=== PATIENT | female | born 1960 | race African-American/Black ===

== ENCOUNTER 2016-11-24 17:56 | Emergency (ER) | payer BC, OTHER ==
[~2016-11-24] VITALS: Ht 165.1 cm; Wt 110.0 kg
[2016-11-24 18:07] VITALS: BP 164/86; PULSE 86; RESP 24; TEMP 98.4; O2SAT 96
[2016-11-24] MEDS ORDERED: SYMB160A INH (18:07)
--- NOTE | 2016-11-24 18:33 | PD ---
HPI Chief Complaint: Respiratory Symptoms Time Seen by Provider: 18:25 Travel History International Travel<30 days: No Contact w/Intl Traveler<30days: No Traveled to known affect area: No History of Present Illness HPI 56yo F with PMH of asthma/COPD was sent from the PMD's office because her pulse oximetry was low there. Pt has been sob and wheezing for about 3 days. Feels like her asthma. +Cough. Denies any fever, chest pain, n/v, abdominal pain, focal weakness or numbness. Pt was given 2 nebulizer treatments and a steroid injection. She was actually feeling better but her pulse ox was low at 89% there for sent her here. Pt's pulse oximetry on room air is 96% here. Pt is a chronic smoker. PFSH Past Medical History Asthma: Yes Influenza Vaccination: No ?: Not Past Surgical History Cholecystectomy: Yes Social History Alcohol Use: No Tobacco Use: Yes Substance Use: No Allergies-Medications (Allergen,Severity, Reaction): Coded Allergies: No Known Allergies (Unverified , 11/24/16) Reported Meds & Prescriptions Reported Meds & Active Scripts Active Reported Symbicort Inh (Budesonide/Formoterol Fumarate) 160-4.5 Mcg/Act Aero 2 Puff INH Q12HR Review of Systems Except as stated in HPI: all other systems reviewed are Neg Physical Exam Narrative GENERAL: 56yo F in mild distress. SKIN: Focused skin assessment warm/dry. HEAD: Atraumatic. Normocephalic. NECK: Trachea midline. No JVD. CARDIOVASCULAR: Regular rate and rhythm. No murmur appreciated. RESPIRATORY: No accessory muscle use. Expiratory wheezing bilaterally. O2 sat 96% on RA. GASTROINTESTINAL: Abdomen soft, non-tender, nondistended. No rebound tenderness or guarding. MUSCULOSKELETAL: No obvious deformities. No clubbing. No cyanosis. No edema. NEUROLOGICAL: Awake and alert. No obvious cranial nerve deficits. Motor grossly within normal limits. Normal speech. PSYCHIATRIC: Appropriate mood and affect; insight and judgment normal. Data Data Last Documented VS Vital Signs Date Time Temp Pulse Resp B/P (MAP) Pulse Ox O2 Delivery O2 Flow Rate FiO2 11/24/16 21:01 94 20 175/76 (109) 94 Room Air 11/24/16 18:07 98.4 Orders Orders Chest, Single Ap (11/24/16 18:28) Albuterol-Ipratropium Neb (Duoneb Neb) (11/24/16 18:30) Electrocardiogram (11/24/16 ) Albuterol-Ipratropium Neb (Duoneb Neb) (11/24/16 21:00) [facility] Medical Decision Making Medical Screen Exam Complete: Yes Emergency Medical Condition: Yes Interpretation(s) EKG: NSR 98bpm. Normal axis. No significant ST segment elevation. Differential Diagnosis Asthma exacerbation vs. pneumonia Narrative Course 56yo F with asthma/COPD was sent here from PMD's office because her saturation was low at 89. CXR negative. Pt has been saturating in the mid 90s and low 90s with ambulating. Pt is wheezing bilaterally and given duonebs. States this is her baseline and she had ran out of her medications for 2 weeks and just needed them. Pt has prescriptions from her PMD for symbicort, ventolin, methylprednisolone. Her friend just went to fill her prescriptions for her while she was in the ED. Denies any chest pain. Return precautions given. Diagnosis Primary Impression: COPD exacerbation Patient Instructions: General Instructions Departure Forms: Tests/Procedures Additional Instructions: Please follow up with your primary care physician and fill the prescriptions that you were given today. Return to the ED if symptoms worsen. Med/Other Pt SpecificInfo: No Change to Meds Disposition: 01 DISCHARGE HOME Condition: Stable Rebecca Valentine Nov 24, 2016 18:33
[2016-11-24] MEDS: RESP: ALBUTEROL 2.5 MG/IPRATROPIUM 0.5 MG NEB (SCH) INH (18:37)
--- NOTE | 2016-11-24 18:57 | RADRPT ---
EXAM DATE/TIME: 11/24/2016 18:48 [facility] COMPARISON: No previous studies available for comparison. INDICATIONS : Short of breath for three days. MEDICAL HISTORY : None. SURGICAL HISTORY : None. ENCOUNTER: Initial ACUITY: 3 days PAIN SCORE: 0/10 LOCATION: Bilateral chest FINDINGS: A single view of the chest demonstrates the lungs to be symmetrically aerated without evidence of mas s, infiltrate or effusion. The cardiomediastinal contours are unremarkable. Osseous structures are intact. CONCLUSION: No evidence of acute cardiopulmonary disease. Jony Valdez MD on November 24, 2016 at 18:56 Board Certified Radiologist. This report was verified electronically.
[2016-11-24 19:08] VITALS: BP 196/86; PULSE 96; RESP 18; O2SAT 96
[2016-11-24] MEDS ORDERED: RESP: ALBUTEROL 2.5 MG/IPRATROPIUM 0.5 MG NEB (SCH) INH ONE (21:00)
[2016-11-24 21:01] VITALS: BP 175/76; PULSE 94; RESP 20; O2SAT 94
[2016-11-24 21:13] VITALS: BP 176/78
--- NOTE | 2016-11-25 11:31 | EKG ---
Date Performed: 11/24/2016 Time Performed: 20:31:27 PTAGE: 56 years EKG: Sinus rhythm NONSPECIFIC T-WAVE ABNORMALITY BORDERLINE ECG NO PREVIOUS TRACING DOCTOR: Arian Sahu Interpretating Date/Time 11/25/2016 11:29:41
== END 2016-11-24 21:27 | disposition home or self-care (01) ==
LOC: PHED 17:56
DX: J44.1 Chronic obstructive pulmonary disease with (acute) exacerbation (principal); Z72.0 Tobacco use
CPT/HCPCS: 71010; 93005; 94640; 94664

== ENCOUNTER 2017-05-03 12:10 | Emergency (ER) | payer BC ==
[~2017-05-03] VITALS: Ht 162.6 cm; Wt 119.1 kg
[~2017-05-03 12:10] MED LIST: SYMB160A INH
[2017-05-03 12:25] VITALS: BP 130/75; PULSE 88; RESP 16; TEMP 98.7; O2SAT 96
[2017-05-03] MEDS ORDERED: AMLO10TA2 PO (12:28)
[2017-05-03] MEDS ORDERED: TRAM50TA PO (12:28)
[2017-05-03] MEDS ORDERED: METH500T3 PO (12:28)
[2017-05-03] MEDS ORDERED: RESP: ALBUTEROL 2.5 MG/IPRATROPIUM 0.5 MG NEB (SCH) INH ONE ×2 (12:30→13:00)
[2017-05-03] MEDS ORDERED: ORPHENADRINE INJ 60 MG/2 ML AMP IM ONE (12:30)
--- NOTE | 2017-05-03 12:40 | PD ---
HPI Chief Complaint: Pain: Acute or Chronic Time Seen by Provider: 12:14 Travel History International Travel<30 days: No Contact w/Intl Traveler<30days: No Traveled to known affect area: No History of Present Illness HPI Patient comes to the emergency department complaining of left flank pain that began yesterday. Patient denies any trauma, fevers, loss of bowel or bladder, numbness tingling anywhere, weakness, or history of IV drug use. Patient reports he saw primary care doctor was started on Mobic and tramadol with no improvement of symptoms. Pain is worse with certain movement. Patient reports increased urinary frequency last night. Denies any dysuria, chest pain, shortness of breath, nausea, vomiting, or abdominal pain. Patient reports he has a chronic cough secondary to her asthma and uses inhalers for this. PFSH Past Medical History Asthma: Yes Cardiovascular Problems: Yes (HTN) Diabetes: Yes (HX of but not anymore) Patient Takes Glucophage: No Hypertension: Yes Respiratory: Yes (asthma) Tetanus Vaccination: < 5 Years Influenza Vaccination: No Past Surgical History Cholecystectomy: Yes Social History Alcohol Use: No Tobacco Use: No Substance Use: No Allergies-Medications (Allergen,Severity, Reaction): Coded Allergies: No Known Allergies (Unverified Adverse Reaction, Unknown, 05/03/17) Reported Meds & Prescriptions Reported Meds & Active Scripts Active Naprosyn (Naproxen) 500 Mg Tab 500 Mg PO Q12HR PRN Reported Tramadol (Tramadol HCl) 50 Mg Tab 50 Mg PO Q8H PRN Methocarbamol 500 Mg Tab 1,000 Mg PO QID Amlodipine (Amlodipine Besylate) 10 Mg Tab 10 Mg PO DAILY Symbicort Inh (Budesonide/Formoterol Fumarate) 160-4.5 Mcg/Act Aero 2 Puff INH Q12HR Review of Systems Except as stated in HPI: all other systems reviewed are Neg Physical Exam Narrative GENERAL: Well-developed, overly nourished, in no acute distress, and non-ill appearing. SKIN: Focused skin assessment warm and dry. HEAD: Atraumatic. Normocephalic. EYES: Pupils equal and round. EOMI. No scleral icterus. No injection or drainage. ENT: No nasal bleeding or discharge. Mucous membranes pink and moist. NECK: Trachea midline. Supple. No nuclear rigidity. CARDIOVASCULAR: Regular rate and rhythm. No murmur appreciated. RESPIRATORY: No accessory muscle use. No respiratory distress. Wheezing noted throughout. Breath sounds equal bilaterally. GASTROINTESTINAL: Abdomen soft, non-tender, nondistended, and no guarding. Hepatic and splenic margins not palpable. Normal bowel sounds x4. No pulsatile mass. MUSCULOSKELETAL: No obvious deformities. No clubbing. No cyanosis. No edema. Full range of motion. Patient reports pain over left CVA. NEUROLOGICAL: Awake and alert. No obvious cranial nerve deficits. Motor grossly within normal limits. Normal speech. PSYCHIATRIC: Appropriate mood and affect; insight and judgment normal. Data Data Last Documented VS Vital Signs Date Time Temp Pulse Resp B/P (MAP) Pulse Ox O2 Delivery O2 Flow Rate FiO2 05/03/17 15:12 05/03/17 14:26 79 16 97 05/03/17 12:25 98.7 Orders Orders Urinalysis - C+S If Indicated (05/03/17 12:21) Chest, Pa & Lat (05/03/17 ) Orphenadrine Inj (Norflex Inj) (05/03/17 12:30) Albuterol-Ipratropium Neb (Duoneb Neb) (05/03/17 12:30) Albuterol-Ipratropium Neb (Duoneb Neb) (05/03/17 13:00) Acetamin-Hydrocod 325-5 Mg (Kennedy 5-325 (05/03/17 14:00) Ct Abd/Pel W/O Iv Contrast (05/03/17 13:58) Iv Access Insert/Monitor (05/03/17 13:58) Ecg Monitoring (05/03/17 13:58) Oximetry (05/03/17 13:58) Sodium Chloride 0.9% Flush (Ns Flush) (05/03/17 14:00) Ed Discharge Order (05/03/17 15:13) Labs Laboratory Tests Test 05/03/17 13:30 Urine Collection Type CLEAN CATCH Urine Color YELLOW Urine Turbidity CLEAR Urine pH 5.5 Urine Specific [place] 1.023 Urine Protein NEG mg/dL Urine Glucose (UA) NEG mg/dL Urine Ketones TRACE mg/dL Urine Occult Blood TRACE Urine Nitrite NEG Urine Bilirubin NEG Urine Leukocyte Esterase NEG Urine RBC 0-3 /hpf Urine WBC 0-2 /hpf Urine Squamous Epithelial Cells 0-5 /hpf Microscopic Urinalysis Comment CULT NOT INDICATED Urine Collection Time 13:30 [facility] Medical Decision Making Medical Screen Exam Complete: Yes Emergency Medical Condition: Yes Interpretation(s) Last Impressions Abdomen/Pelvis CT 05/03/17 1358 Signed Impressions: Service Date/Time: Wednesday, May 03, 2017 14:14 - CONCLUSION: 1. Negative renal colic CT. Juan Luis Epperson MD Chest X-Ray 05/03/17 0000 Signed Impressions: Service Date/Time: Wednesday, May 03, 2017 12:46 - CONCLUSION: No acute cardiopulmonary disease. Juan Luis Epperson MD Differential Diagnosis Pneumonia, fracture, costochondritis, pyelonephritis, UTI, renal calculi, renal colic, muscular skeletal pain Narrative Course The patient presented complaining of back pain. There was no history of preceding trauma. Evaluation included labs, x-ray, and CT scan and no obvious fracture or acute disease was noted at this time. The patients evaluation was consistent with soft tissue injury and not consistent with bony injury. The patients neurological exam is normal with normal motor and sensory. There is no saddle paresthesias reported and no bowel or bladder incontinence or retention. Clinical suspicion, plan of care and management was discussed with the patient. The patient was instructed to follow up with their health care provider. The patient was also instructed to return if the pain worsened, changed, or developed weakness or bowel or bladder trouble. The patient agreed with plan. There was no evidence to support genitourinary etiology as well. There is also no evidence to suggest vascular pathology such as AAA dissection. No fevers or other evidence to suspect infectious processes, abscess etc. Patient with asymptomatic hematuria. No obvious evidence of infection or kidney stones. This finding was discussed with the patient and the patient was instructed to follow up with with primary care provider for recheck and possible referral to urology to possibly rule out etiologies such as cancer. Patient agreed with plan. Patient in no obvious distress upon re-evaluation. All pertinent laboratory/ Radiology result(s) discussed with patient. Patient was asked if they wanted to speak to my attending, which the patient did not wish to do at this time. Any questions/concerns in reference to patient diagnosis/condition discussed and clarified prior to patient's discharge. Reinforced sheer importance of close follow up with patient's primary physician or primary care clinic. Instructed patient to return to ED immediately, if symptoms return/worsen. Patient showed understanding of above instructions. Further instructions and recommendations were detailed in discharge paperwork. Patient ambulated without difficulty out of ED at discharge. Diagnosis Primary Impression: Thoracic back pain Qualified Codes: M54.6 - Pain in thoracic spine Additional Impression: Hematuria Qualified Codes: R31.21 - Asymptomatic microscopic hematuria Patient Instructions: Back Pain (ED), General Instructions Additional Instructions: Follow-up with your primary care physician in 2-5 days for reevaluation. Take all medication as prescribed. Return to the emergency department if symptoms get worse. Med/Other Pt SpecificInfo: Prescription(s) given Scripts Naproxen (Naprosyn) 500 Mg Tab 500 MG PO Q12HR Y for PAIN SCALE 1 TO 10, #14 TAB 0 Refills Prov: Wilmar Dickens MD 05/03/17 Disposition: 01 DISCHARGE HOME Condition: Stable [place] May 03, 2017 12:40
--- NOTE | 2017-05-03 13:18 | RADRPT ---
EXAM DATE/TIME: 05/03/2017 12:46 [facility] COMPARISON: No previous studies available for comparison. INDICATIONS : Cough, wheezing, flank pain. MEDICAL HISTORY : Hypertension. Asthma. SURGICAL HISTORY : Cholecystectomy. ENCOUNTER: Initial ACUITY: 2 days PAIN SCORE: 0/10 LOCATION: chest FINDINGS: PA and lateral views of the chest demonstrate the lungs to be symmetrically aerated without evidence of mass, infiltrate or effusion. No evidence of pneumothorax. The cardiomediastinal contours are un remarkable. Mild degenerative changes in the thoracic spine. CONCLUSION: No acute cardiopulmonary disease. Juan Luis Epperson MD on May 03, 2017 at 13:16 Board Certified Radiologist. This report was verified electronically.
[2017-05-03 13:43] LABS: BILIRUBIN, URINE NEG (NEG); BLOOD, URINE TRACE (NEG); GLUCOSE,URINE NEG (NEG); KETONE, URINE TRACE mg/dL (NEG); NITRITE,URINE NEG (NEG); PH, URINE 5.5 (5.0-8.5); URINE LEUKOCYTE ESTERASE NEG (NEG)
[2017-05-03 13:53] LABS: RBC, URINE 0-3 /hpf (0-3); SQUAMOUS EPITHELIAL CELL URINE 0-5 /hpf (0-5); URINE COLOR YELLOW (YELLW/STRAW); WBC, URINE 0-2 /hpf (0-5)
[2017-05-03] MEDS ORDERED: ACETAMINOPHEN/HYDROcodone 325 MG/5 MG TAB PO ONE (14:00)
[2017-05-03] MEDS ORDERED: SODIUM CHLORIDE 0.9% FLUSH 10 ML FLUSH IV FLUSH PRN (14:00)
[2017-05-03 14:26] VITALS: BP 119/51; PULSE 79; RESP 16; O2SAT 97
--- NOTE | 2017-05-03 15:04 | RADRPT ---
EXAM DATE/TIME: 05/03/2017 14:14 [facility] COMPARISON: No previous studies available for comparison. INDICATIONS : Low back pain. Evaluate for renal calculi. ORAL CONTRAST: No oral contrast ingested. RADIATION DOSE: 27.92 CTDIvol (mGy) ; Patient body habitus MEDICAL HISTORY : Hypertension. Diabetes mellitus type 2. SURGICAL HISTORY : Cholecystectomy. ENCOUNTER: Initial ACUITY: 3 days PAIN SCALE: 10/10 LOCATION: Low back TECHNIQUE: Renal colic protocol. Volumetric scanning of the abdomen and pelvis was performed. Using automated exposure control and adjustment of the mA and/or kV according to patient size, radiation dose was kep t as low as reasonably achievable to obtain optimal diagnostic quality images. DICOM format image da ta is available electronically for review and comparison. FINDINGS: Right side: No evidence of hydronephrosis. No calcified stones in the collecting system or along the right urete r. Left side: No evidence of hydronephrosis. No calcified stones in the collecting system or along the left ureter . Dominant exophytic cyst arising from the lateral upper pole measuring 5.2 cm. Bladder: Nondistended. Smooth margins. Calcifications within the lumen. Other: No dilated loops of small or large bowel. Cholecystectomy. Normal appearance of the pancreas. CONCLUSION: 1. Negative renal colic CT. Juan Luis Epperson MD on May 03, 2017 at 15:00 Board Certified Radiologist. This report was verified electronically.
[2017-05-03] MEDS ORDERED: NAPR500 PO (15:13)
== END 2017-05-03 15:20 | disposition home or self-care (01) ==
LOC: PHEFT 12:10
DX: M54.6 Pain in thoracic spine (principal); R31.21 Asymptomatic microscopic hematuria; J45.909 Unspecified asthma, uncomplicated; I10 Essential (primary) hypertension
CPT/HCPCS: 71046; 74176; 81001; 94640; 94664; 96372; 99284; J2360

== ENCOUNTER 2017-05-11 11:30 | Inpatient (IN) | payer BC ==
[2017-05-11] VITALS (9 sets, daily range): BP systolic 129–206; BP diastolic 64–107; PULSE 108–118; RESP 20–26; TEMP 97.6–100.9; O2SAT 85–96
[~2017-05-11] VITALS: Ht 162.6 cm; Wt 122.7 kg
[~2017-05-11 11:30] MED LIST changes: +AMLO10TA2 PO; +METH500T3 PO; +NAPR500 PO; +TRAM50TA PO
[2017-05-11] MEDS: RESP: ALBUTEROL 2.5 MG/IPRATROPIUM 0.5 MG NEB (SCH) INH (11:40)
[2017-05-11] MEDS ORDERED: methylPREDNISolone SOD SUCC 125 MG/2 ML VIAL IV PUSH ONE (11:45)
[2017-05-11] MEDS ORDERED: ACETAMINOPHEN 325 MG TAB PO ONE (11:45)
--- NOTE | 2017-05-11 11:47 | PD ---
HPI Chief Complaint: Respiratory Distress Time Seen by Provider: 11:35 Travel History International Travel<30 days: No Contact w/Intl Traveler<30days: No Traveled to known affect area: No History of Present Illness HPI This 56-year-old female is complaining of shortness of breath. He has a history of asthma. He has been using nebulizers at home. She is not on oxygen. She stopped smoking 2 months ago. She has been on prednisone in the past but not in the last month or so. She has never been admitted to the hospital for her asthma. She started getting shortness of breath yesterday. It has been progressive and she says she did not sleep during the night. He is coughing up phlegm PFSH Past Medical History Asthma: Yes Cardiovascular Problems: Yes (HTN) Diabetes: Yes (HX of but not anymore) Hypertension: Yes Respiratory: Yes (asthma) Past Surgical History Cholecystectomy: Yes Social History Alcohol Use: No Tobacco Use: No Substance Use: No Allergies-Medications (Allergen,Severity, Reaction): Coded Allergies: No Known Allergies (Unverified Adverse Reaction, Unknown, 05/03/17) Reported Meds & Prescriptions Reported Meds & Active Scripts Active Naprosyn (Naproxen) 500 Mg Tab 500 Mg PO Q12HR PRN Reported Methocarbamol 500 Mg Tab 1,000 Mg PO QID Amlodipine (Amlodipine Besylate) 10 Mg Tab 10 Mg PO DAILY Symbicort Inh (Budesonide/Formoterol Fumarate) 160-4.5 Mcg/Act Aero 2 Puff INH Q12HR Review of Systems Except as stated in HPI: all other systems reviewed are Neg General / Constitutional: Positive: Fever Eyes: No: Diploplia, Blurred Vision HENT: No: Headaches, Vertigo Cardiovascular: No: Chest Pain or Discomfort, Palpitations Respiratory: Positive: Cough, Shortness of Breath, Wheezing Gastrointestinal: No: Vomiting, Diarrhea Genitourinary: No: Urgency, Frequency Musculoskeletal: No: Myalgias, Arthralgias Skin: No Rash, No Itching Neurologic: No: Weakness, Dizziness Endocrine: No: Heat Intolerance, Cold Intolerance Hematologic/Lymphatic: No: Easy Bruising Physical Exam Narrative GENERAL: Patient arrives in marked respiratory distress SKIN: Focused skin assessment warm/dry. HEAD: Atraumatic. Normocephalic. EYES: Pupils equal and round. No scleral icterus. No injection or drainage. ENT: No nasal bleeding or discharge. Mucous membranes pink and moist. NECK: Trachea midline. No JVD. CARDIOVASCULAR: Rapid regular rate and rhythm. No murmur appreciated. RESPIRATORY: There is accessory muscle use. There is bilateral rhonchi and wheezes GASTROINTESTINAL: Abdomen soft, non-tender, nondistended. Hepatic and splenic margins not palpable. MUSCULOSKELETAL: No obvious deformities. No clubbing. No cyanosis. No edema. NEUROLOGICAL: Awake and alert. No obvious cranial nerve deficits. Motor grossly within normal limits. Normal speech. PSYCHIATRIC: Appropriate mood and affect; insight and judgment normal. Data Data Last Documented VS Vital Signs Date Time Temp Pulse Resp B/P (MAP) Pulse Ox O2 Delivery O2 Flow Rate FiO2 05/11/17 12:23 100.4 118 26 183/76 (111) 95 Room Air 05/11/17 12:09 2.00 Orders Orders Complete Blood Count With Diff (05/11/17 11:36) Comprehensive Metabolic Panel (05/11/17 11:36) B-Type Natriuretic Peptide (05/11/17 11:36) Magnesium (Mg) (05/11/17 11:36) Troponin I (05/11/17 11:36) Urinalysis - C+S If Indicated (05/11/17 11:36) Influenzae A/B Antigen (05/11/17 11:36) Blood Culture (05/11/17 11:36) Iv Access Insert/Monitor (05/11/17 11:36) Ecg Monitoring (05/11/17 11:36) Oximetry (05/11/17 11:36) Oxygen Administration (05/11/17 11:36) Chest, Single Ap (05/11/17 11:36) Sodium Chloride 0.9% Flush (Ns Flush) (05/11/17 11:45) Methylprednisolone So Succ Inj (Solumedr (05/11/17 11:45) Albuterol-Ipratropium Neb (Duoneb Neb) (05/11/17 11:45) Acetaminophen (Tylenol) (05/11/17 11:45) Ceftriaxone Inj (Rocephin Inj) (05/11/17 12:30) Labs Laboratory Tests Test 05/11/17 11:50 White Blood Count 19.5 TH/MM3 Red Blood Count 4.82 MIL/MM3 Hemoglobin 14.8 GM/DL Hematocrit 43.4 % Mean Corpuscular Volume 89.9 FL Mean Corpuscular Hemoglobin 30.6 PG Mean Corpuscular Hemoglobin Concent 34.0 % Red Cell Distribution Width 14.8 % Platelet Count 229 TH/MM3 Mean Platelet Volume 8.5 FL Neutrophils (%) (Auto) 83.3 % Lymphocytes (%) (Auto) 7.4 % Monocytes (%) (Auto) 5.4 % Eosinophils (%) (Auto) 0.4 % Basophils (%) (Auto) 3.5 % Neutrophils # (Auto) 16.2 TH/MM3 Lymphocytes # (Auto) 1.4 TH/MM3 Monocytes # (Auto) 1.1 TH/MM3 Eosinophils # (Auto) 0.1 TH/MM3 Basophils # (Auto) 0.7 TH/MM3 CBC Comment DIFF FINAL Differential Comment MDM Medical Decision Making Medical Screen Exam Complete: Yes Emergency Medical Condition: Yes Medical Record Reviewed: Yes Differential Diagnosis Differential includes pneumonia, COPD exacerbation, asthma exacerbation Narrative Course Chest x-ray is read as negative. Patient has been given Solu-Medrol. She has been given repeated nebs. After 3 nebulizer treatments she remains in respiratory distress with bilateral wheezing. Her pulse rate is 110 oxygen saturation on 2 L is 95%. She has been given Rocephin. Her white count is elevated at 19,000. She will need to be admitted Diagnosis Primary Impression: Asthma exacerbation Admitting Information Admitting Physician Requests: Admit Ayad Valladares MD May 11, 2017 11:47
[2017-05-11 12:10] LABS: AUTOMATED NEUTROPHIL # 16.2 TH/MM3 (1.8-7.7); BASOPHIL # 0.7 TH/MM3 (0-0.2); BASOPHIL % 3.5 % (0.0-2.0); EOSINOPHIL # 0.1 TH/MM3 (0-0.4); EOSINOPHIL % 0.4 % (0.0-4.0); HEMATOCRIT 43.4 % (35.0-46.0); HEMOGLOBIN 14.8 GM/DL (11.6-15.3); LYMPH % 7.4 % (9.0-44.0); LYMPHOCYTE # 1.4 TH/MM3 (1.0-4.8); MEAN CELL VOLUME 89.9 FL (80.0-100.0); MEAN CORPUSCULAR HEMOGLOBIN 30.6 PG (27.0-34.0); MEAN PLATELET VOLUME 8.5 FL (7.0-11.0); MONO % 5.4 % (0.0-8.0); MONOCYTE # 1.1 TH/MM3 (0-0.9); NEUT % 83.3 % (16.0-70.0); PLATELET COUNT 229 TH/MM3 (150-450); RED BLOOD COUNT 4.82 MIL/MM3 (4.00-5.30); RED CELL DISTRIBUTION WIDTH 14.8 % (11.6-17.2); WHITE BLOOD COUNT 19.5 TH/MM3 (4.0-11.0)
--- NOTE | 2017-05-11 12:18 | RADRPT ---
EXAM DATE/TIME: 05/11/2017 12:02 [facility] COMPARISON: CHEST SINGLE AP, November 24, 2016, 18:48. INDICATIONS : Short of breath. MEDICAL HISTORY : Hypertension. Diabetes mellitus type 2. Asthma. SURGICAL HISTORY : Cholecystectomy. ENCOUNTER: Initial ACUITY: 1 day PAIN SCORE: 0/10 LOCATION: chest FINDINGS: Lungs are hyperinflated. Mild diffuse interstitial prominence is noted. There is no evidence of conso lidating air space disease, mass densities or effusions. Heart remains normal in size. CONCLUSION: Stable chest demonstrating COPD. No evidence of acute cardiac pulmonary process. Franko Messer MD on May 11, 2017 at 12:15 Board Certified Radiologist. This report was verified electronically.
[2017-05-11] MEDS ORDERED: cefTRIAXone INJ 1,000 MG in SODIUM CHLORIDE 0.9% INJ 100 ML IV ONE (12:30)
[2017-05-11 13:38] LABS: CHLORIDE 103 MEQ/L (98-107); SODIUM (NA) 138 MEQ/L (136-145)
[2017-05-11 13:41] LABS: ALBUMIN 3.5 GM/DL (3.4-5.0); BICARBONATE 31.1 MEQ/L (21.0-32.0); CALCIUM 8.8 MG/DL (8.5-10.1)
[2017-05-11 13:42] LABS: BLOOD UREA NITROGEN 11 MG/DL (7-18); GLUCOSE,RANDOM 190 MG/DL (74-106); MAGNESIUM 1.8 MG/DL (1.5-2.5)
[2017-05-11 13:45] LABS: ALT (GPT) 19 U/L (10-53); AST (GOT) 15 U/L (15-37); CREATININE 0.75 MG/DL (0.50-1.00); GLOMERULAR FILTRATION RATE 79 ML/MIN (>89)
[2017-05-11 13:46] LABS: TOTAL PROTEIN 7.6 GM/DL (6.4-8.2)
[2017-05-11 13:48] LABS: ALKALINE PHOSPHATASE 111 U/L (45-117)
[2017-05-11 13:50] LABS: TROPONIN I LESS THAN 0.02 NG/ML (0.02-0.05)
[2017-05-11 13:58] LABS: TOTAL BILIRUBIN ADULT 0.4 MG/DL (0.2-1.0)
[2017-05-11] MEDS ORDERED: RESP: ALBUTEROL 2.5 MG/IPRATROPIUM 0.5 MG NEB (PRN) NEB (14:00)
[2017-05-11] MEDS: RESP: ALBUTEROL 2.5 MG/IPRATROPIUM 0.5 MG NEB (SCH) NEB ×2 (14:54→20:21)
--- NOTE | 2017-05-11 16:49 | HHI.HP ---
[facility] Service [facility] Primary Care Physician NILDA Esposito Admission Diagnosis ASTHMA EXACERBATION Diagnoses: Chief Complaint: Shortness of breath Travel History International Travel<30 Days: No Contact w/Intl Traveler <30 Da: No Traveled to Known Affected Are: No History of Present Illness 56-year-old white female being admitted for sepsis. Patient was in her usual state of health until sometime last night which he began experiencing a gradual onset of shortness of breath. Says that she had a cough that also developed. She was taking her albuterol and Symbicort as prescribed but this would not alleviate her symptoms. Her symptoms progressed with time and thus she decided come to the emergency department. She denies having any fevers but does endorse chills. Denies any nausea vomiting. Denies having any chest pain. Denies any cyanosis. Emergency room she was found to have a fever of 100.9 with some tachycardia. Chest x-ray was obtained which I definitely reviewed and shows no acute infiltrates. Was given Rocephin duo nebs and Solu-Medrol in the emergency department. Patient denies ever being formally diagnosed with asthma as a child or having to take any inhalers as a child. 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 Physical Exam Vital Signs Vital Signs Date Time Temp Pulse Resp B/P (MAP) Pulse Ox O2 Delivery O2 Flow Rate FiO2 05/11/17 15:35 97.9 108 24 129/64 (85) 93 05/11/17 14:34 05/11/17 13:22 109 20 150/72 (98) 94 Nasal Cannula 2.00 05/11/17 12:23 100.4 118 26 183/76 (111) 95 Room Air 05/11/17 12:09 96 Nasal Cannula 2.00 05/11/17 12:03 116 24 174/83 (113) 95 05/11/17 11:53 26 85 Room Air 05/11/17 11:45 88 Room Air 05/11/17 11:45 100.9 112 26 206/107 (140) 85 05/11/17 11:45 88 Nasal Cannula 2.00 05/11/17 11:40 95 Nasal Cannula 4.00 Physical Exam VS: afebrile GENERAL: Lying in bed, mild respiratory distress, awake and alert SKIN: Warm and dry. EYES: No scleral icterus. No injection or drainage. ENT: No nasal bleeding or discharge. Mucous membranes pink and moist. CARDIOVASCULAR: Regular rate and rhythm. no murmurs RESPIRATORY: Mildly labored respiratory effort, has diffuse wheezing, no crackles GASTROINTESTINAL: Obese abdomen which is soft, nontender Extremities: No clubbing, cyanosis, or edema. No obvious deformities. MUSCULOSKELETAL: adequate muscle bulk and tone for age and habitus NEUROLOGICAL: Awake and alert. No obvious cranial nerve deficits. No facial droop nor slurred speech noted. PSYCHIATRIC: Appropriate mood and affect; insight and judgment normal. Laboratory Laboratory Tests Test 05/11/17 11:50 05/11/17 13:20 White Blood Count 19.5 Red Blood Count 4.82 Hemoglobin 14.8 Hematocrit 43.4 Mean Corpuscular Volume 89.9 Mean Corpuscular Hemoglobin 30.6 Mean Corpuscular Hemoglobin Concent 34.0 Red Cell Distribution Width 14.8 Platelet Count 229 Mean Platelet Volume 8.5 Neutrophils (%) (Auto) 83.3 Lymphocytes (%) (Auto) 7.4 Monocytes (%) (Auto) 5.4 Eosinophils (%) (Auto) 0.4 Basophils (%) (Auto) 3.5 Neutrophils # (Auto) 16.2 Lymphocytes # (Auto) 1.4 Monocytes # (Auto) 1.1 Eosinophils # (Auto) 0.1 Basophils # (Auto) 0.7 CBC Comment DIFF FINAL Differential Comment Blood Urea Nitrogen 11 Creatinine 0.75 Random Glucose 190 Total Protein 7.6 Albumin 3.5 Calcium Level 8.8 Magnesium Level 1.8 Alkaline Phosphatase 111 Aspartate Amino Transf (AST/SGOT) 15 Alanine Aminotransferase (ALT/SGPT) 19 Total Bilirubin 0.4 Sodium Level 138 Potassium Level 3.8 Chloride Level 103 Carbon Dioxide Level 31.1 Anion Gap 4 Estimat Glomerular Filtration Rate 79 Troponin I LESS THAN 0.02 B-Type Natriuretic Peptide 27 Date/Time Source Procedure Growth Status 05/11/17 11:55 Blood Peripheral Aerobic Blood Culture Pending Received 05/11/17 11:55 Blood Peripheral Anaerobic Blood Culture Pending Received 05/11/17 12:00 Nasal Washing Influenza Types A,B Antigen (ALBERTA) - Final NEGATIVE FOR FLU A AND B ANTIGEN.... Complete Result Diagram: 05/11/17 1150 05/11/17 1320 Imaging Last Impressions Chest X-Ray 05/11/17 1136 Signed Impressions: Service Date/Time: , May 11, 2017 12:02 - CONCLUSION: Stable chest demonstrating COPD. No evidence of acute cardiac pulmonary process. MD Cliff Jim VTE Risk Assessment Cliff VTE Risk Assessment: Mod/High Risk (score >= 2) Caprini Risk Assessment Model Point Value = 1 Point Value = 2 Point Value = 3 Point Value = 5 Age 41-60 Minor surgery BMI > 25 kg/m2 Swollen legs Varicose veins or History of unexplained or recurrent spontaneous Oral contraceptives or hormone replacement Sepsis (< 1 month) Serious lung disease, including pneumonia (< 1 month) Abnormal pulmonary function Acute myocardial infarction Congestive heart failure (< 1 month) History of inflammatory bowel disease Medical patient at bed rest Age 61-74 Arthroscopic surgery Major open surgery (> 45 min) Laparoscopic surgery (> 45 min) Malignancy Confined to bed (> 72 hours) Immobilizing plaster cast Central venous access Age >= 75 History of VTE Family history of VTE Factor V Leiden Prothrombin [id number] Lupus anticoagulant Anticardiolipin antibodies Elevated serum homocysteine Heparin-induced thrombocytopenia Other congenital or acquired thrombophilia Stroke (< 1 month) Elective arthroplasty Hip, pelvis, or leg fracture Acute spinal cord injury (< 1 month) Prophylaxis Regimen Total Risk Factor Score Risk Level Prophylaxis Regimen 0-1 Low Early ambulation 2 Moderate Order ONE of the following: *Sequential Compression Device (SCD) *Heparin 5000 units SQ BID 3-4 Higher Order ONE of the following medications: *Heparin 5000 units SQ TID *Enoxaparin/Lovenox 40 mg SQ daily (WT < 150 kg, CrCl > 30 mL/min) *Enoxaparin/Lovenox 30 mg SQ daily (WT < 150 kg, CrCl > 10-29 mL/min) *Enoxaparin/Lovenox 30 mg SQ BID (WT < 150 kg, CrCl > 30 mL/min) AND/OR *Sequential Compression Device (SCD) 5 or more Highest Order ONE of the following medications: *Heparin 5000 units SQ TID (Preferred with Epidurals) *Enoxaparin/Lovenox 40 mg SQ daily (WT < 150 kg, CrCl > 30 mL/min) *Enoxaparin/Lovenox 30 mg SQ daily (WT < 150 kg, CrCl > 10-29 mL/min) *Enoxaparin/Lovenox 30 mg SQ BID (WT < 150 kg, CrCl > 30 mL/min) AND *Sequential Compression Device (SCD) Assessment and Plan Assessment and Plan Sepsis likely secondary to acute bronchitis leading to shortness of breath -Blood cultures obtained, follow-up, given Rocephin in ER, will additionally continue with Rocephin and azithromycin -We will obtain pro calcitonin, if negative, antibiotics can be discontinued -Chest x-ray negative for any acute pneumonia Shortness of breath -DuoNeb's and steroids and albuterol as needed HTN - continue home [facility] Physician Certification 2 Midnight Certification Type: Admission for Inpatient Services Order for Inpatient Services The services are ordered in accordance with Medicare regulations or non- Medicare payer requirements, as applicable. In the case of services not specified as inpatient-only, they are appropriately provided as inpatient services in accordance with the 2-midnight benchmark. Estimated LOS (days): 2 2 days is the estimated time the patient will need to remain in the hospital, assuming treatment plan goals are met and no additional complications. Post-Hospital Plan: Home Angelo Martin MD May 11, 2017 16:48
[2017-05-11] MEDS: METHOCARBAMOL 500 MG TAB PO SCH ×2 (17:25→20:36)
[2017-05-11] MEDS: AZITHROMYCIN INJ 500 MG in SODIUM CHLOR 0.9% 250 ML INJ 250 ML IV SCH (17:25)
[2017-05-11] MEDS: methylPREDNISolone SOD SUCC 125 MG/2 ML VIAL IV PUSH SCH ×2 (17:45→20:36)
[2017-05-11] MEDS: SODIUM CHLORIDE 0.9% FLUSH 10 ML FLUSH IVF PRN (20:35)
[2017-05-11] MEDS: BUDESONIDE-FORMOTEROL 160/4.5 MCG INHALER INH SCH (21:42)
[2017-05-12] VITALS (9 sets, daily range): BP systolic 111–177; BP diastolic 53–81; PULSE 86–102; RESP 20–24; TEMP 96.1–98.2; O2SAT 92–99
[2017-05-12] MEDS: methylPREDNISolone SOD SUCC 125 MG/2 ML VIAL IV PUSH SCH (05:19)
[2017-05-12] MEDS: RESP: ALBUTEROL 2.5 MG/IPRATROPIUM 0.5 MG NEB (SCH) NEB ×3 (07:43→19:25)
[2017-05-12] MEDS: METHOCARBAMOL 500 MG TAB PO SCH ×4 (08:31→21:03)
[2017-05-12] MEDS: BUDESONIDE-FORMOTEROL 160/4.5 MCG INHALER INH SCH ×2 (09:00→21:01)
[2017-05-12 10:54] LABS: AUTOMATED NEUTROPHIL # 19.7 TH/MM3 (1.8-7.7); BASOPHIL % 0.2 % (0.0-2.0); HEMATOCRIT 43.5 % (35.0-46.0); HEMOGLOBIN 14.2 GM/DL (11.6-15.3); LYMPH % 4.7 % (9.0-44.0); MEAN CELL VOLUME 91.5 FL (80.0-100.0); MEAN CORPUSCULAR HEMOGLOBIN 29.9 PG (27.0-34.0); MEAN CORPUSCULAR HGB CONC 32.7 % (32.0-36.0); MEAN PLATELET VOLUME 8.7 FL (7.0-11.0); MONO % 1.1 % (0.0-8.0); MONOCYTE # 0.2 TH/MM3 (0-0.9); PLATELET COUNT 205 TH/MM3 (150-450); RED BLOOD COUNT 4.75 MIL/MM3 (4.00-5.30); RED CELL DISTRIBUTION WIDTH 15.5 % (11.6-17.2); WHITE BLOOD COUNT 20.9 TH/MM3 (4.0-11.0)
[2017-05-12] MEDS ORDERED: ACETAMINOPHEN 500 MG CPLT PO PRN (11:30)
[2017-05-12 11:46] LABS: BICARBONATE 28.5 MEQ/L (21.0-32.0)
[2017-05-12 11:53] LABS: CREATININE 1.2 MG/DL (0.50-1.00)
--- NOTE | 2017-05-12 12:00 | EKG ---
Date Performed: 05/11/2017 Time Performed: 11:38:39 PTAGE: 56 years EKG: SINUS TACHYCARDIA ABNORMAL RHYTHM ECG PREVIOUS TRACING : 11/24/2016 20.31 When compared to prior EKG, patient is now tachycardic. DOCTOR: Malissa Tabares Interpretating Date/Time 05/12/2017 11:58:36
[2017-05-12] MEDS: cefTRIAXone INJ 1,000 MG in SODIUM CHLORIDE 0.9% INJ 100 ML IV SCH (12:15)
[2017-05-12] MEDS ORDERED: DEXTROSE 50% IN WATER 50 ML VIAL(D50) IV PUSH PRN (12:30)
[2017-05-12] MEDS ORDERED: GLUCAGON 1 MG/ML VIAL OTHER PRN (12:30)
[2017-05-12] MEDS: SODIUM CHLOR 0.9% 1000 ML INJ 1,000 ML IV SCH ×2 (14:00→21:03)
--- NOTE | 2017-05-12 14:12 | HHI.PR ---
Subjective Remarks Patient seen and evaluated in follow-up for acute respiratory distress secondary to asthma exacerbation. Patient also may have underlying COPD due to ongoing tobacco dependency for the last 40 years. Patient also with elevated blood sugars over the 400s. She has been off her medication for diabetes due to "control". Objective Vitals Vital Signs Date Time Temp Pulse Resp B/P (MAP) Pulse Ox O2 Delivery O2 Flow Rate FiO2 05/12/17 12:00 97.5 94 24 157/70 (99) 92 05/12/17 08:00 97.3 89 24 177/73 (107) 93 05/12/17 07:58 96 Nasal Cannula 3.00 05/12/17 07:46 99 Nasal Cannula 4.00 05/12/17 04:00 96.1 86 20 111/66 (81) 98 05/12/17 00:00 97.1 92 20 173/81 (111) 93 05/11/17 20:21 94 Nasal Cannula 4.00 05/11/17 20:00 97.6 113 20 147/72 (97) 92 05/11/17 15:35 97.9 108 24 129/64 (85) 93 05/11/17 14:34 I/O 05/11/17 05/11/17 05/11/17 05/12/17 05/12/17 05/12/17 06:59 14:59 22:59 06:59 14:59 22:59 Intake Total 100 ml 250 ml Balance 100 ml 250 ml Intake IV Total 100 ml 250 ml Result Diagram: 05/12/17 1030 05/12/17 1030 Imaging Last Impressions Chest X-Ray 05/11/17 1136 Signed Impressions: Service Date/Time: May 12:02 - CONCLUSION: Stable chest demonstrating COPD. No evidence of acute cardiac pulmonary process. Franko Messer MD Objective Remarks GENERAL: This is a well-nourished, well-developed patient, complaining of back and muscle pain CARDIOVASCULAR: Regular rate and rhythm without murmurs, gallops, or rubs. RESPIRATORY: Decreased airflow bilaterally without appreciable wheezes GASTROINTESTINAL: Abdomen soft, non-tender, nondistended. Normal active bowel sounds MUSCULOSKELETAL: Extremities without clubbing, cyanosis, or edema. NEURO: Alert & Oriented x4 to person, place, time, situation. Moves all ext x4 A/P Problem List: (1) VERONICA (acute kidney injury) ICD Code: N17.9 - Acute kidney failure, unspecified (2) Hyperglycemia ICD Code: R73.9 - Hyperglycemia, unspecified Plan: Patient with remote history of diabetes related to steroids in the past ( related to Crohn's disease) She reports random blood sugars in her primary doctor's office in the 120s. Will follow up with hemoglobin A1c, sliding scale insulin Random blood sugar here is 190 and 462. Discussed with patient and spouse (3) Asthma exacerbation ICD Code: J45.901 - Unspecified asthma with (acute) exacerbation Status: Acute Plan: Continue with nebulized bronchodilator therapy, steroids to taper, follow -up clinically With hypoxemic respiratory failure, sats 88%, improved on nasal cannula, follow- up PFT Concerning for underlying COPD given patient's prolonged tobacco exposure (4) HTN (hypertension) ICD Code: I10 - Essential (primary) hypertension Plan: On amlodipine, will add hydrochlorothiazide Bharti Galdamez MD May 12, 2017 14:12
[2017-05-12 14:25] LABS: BILIRUBIN, URINE NEG (NEG); BLOOD, URINE TRACE (NEG); GLUCOSE,URINE 1000 OR GREATER mg/dL (NEG); KETONE, URINE NEG (NEG); NITRITE,URINE NEG (NEG); URINE COLOR YELLOW (YELLW/STRAW); URINE LEUKOCYTE ESTERASE NEG (NEG)
[2017-05-12 14:30] LABS: RBC, URINE 0-3 /hpf (0-3); SQUAMOUS EPITHELIAL CELL URINE 0-5 /hpf (0-5); WBC, URINE 0-2 /hpf (0-5)
[2017-05-12] MEDS: HYDROCHLOROTHIAZIDE 25 MG TAB PO SCH (14:30)
[2017-05-12] MEDS: NAPROXEN 500 MG TAB PO PRN (14:32)
[2017-05-12] MEDS: AZITHROMYCIN INJ 500 MG in SODIUM CHLOR 0.9% 250 ML INJ 250 ML IV SCH (14:33)
[2017-05-12] MEDS: INSULIN ASPART SUPPLEMENTAL SCALE SQ SCH ×2 (17:00→21:02)
[2017-05-12 17:41] LABS: HEMOGLOBIN A1C 7.4 % (4.3-6.0)
[2017-05-12] MEDS: methylPREDNISolone SOD SUCC 40 MG/1 ML VIAL IV PUSH SCH (21:03)
--- NOTE | 2017-05-12 23:26 | MB ---
cc: David Sanders MD, Arjun D MD DATE OF CONSULT: 05/12/2017 REQUESTING PHYSICIAN: Dr. Bharti Sibley REASON FOR CONSULTATION: COPD exacerbation. HISTORY OF PRESENT ILLNESS: Ms. Lynn is a 56-year-old female with longstanding history of asthma and COPD with long history of smoking, which she quit 2 months ago. She came to the hospital with 3-day history of worsening of her shortness of breath. She has tightness in the chest, wheezing, cough and sputum production. She had fever and no chest pain. With these symptoms, she came to the hospital. She had a workup done. Her chest x-ray shows stable chest with COPD changes. WBC count is 20.9, hemoglobin 14.2, hematocrit 43.5, MCV 91, platelet count 205. Sodium 137, potassium 4.5, chloride 101, CO2 of 28, BUN 26, creatinine 1.2. Glucose 452. PAST MEDICAL HISTORY: Significant for history of hypertension, now diagnosed with diabetes mellitus, COPD and asthma. MEDICATIONS: She is currently taking Solu-Medrol 40 mg q. 12 hours, hydrochlorothiazide 25 mg a day, Rocephin 1 gram a day, amlodipine 10 mg a day, Symbicort 160/4.5 two puffs b.i.d., Robaxin 1000 mg 4 times day, Zithromax 500 mg a day ALLERGIES: NO KNOWN DRUG ALLERGIES SOCIAL HISTORY: She has more than 30 years of smoking 1 pack a day which she quit 2 months ago. No alcohol abuse. She works for [employer]. FAMILY HISTORY: She is with her female partner. No children. REVIEW OF SYSTEMS: Normally, she is up, around and active. No DVT or pulmonary embolism. She has recently diagnosed sleep apnea. PHYSICAL EXAMINATION: GENERAL: Moderately obese female, mildly short of breath. VITAL SIGNS: Blood pressure 132/64, heart rate 102, respirations 20, temperature 98.2. HEENT: Pupils are equal and react to light. Oral mucosa and nasal mucosa normal. NECK: Supple. No JVD noted. CHEST: Expiratory rhonchi. CARDIOVASCULAR: S1, S2 normal. ABDOMEN: Benign. EXTREMITIES: No edema. IMPRESSION: 1. Chronic obstructive pulmonary disease exacerbation. 2. Bronchitis. 3. Nicotine use. 4. Hypertension. 5. Diabetes mellitus. 6. Obstructive sleep apnea. 7. Morbid obesity. PLAN: We will give her IV Solu-Medrol. Monitor her blood sugar. Continue aerosol treatment, Symbicort twice a day, continue antibiotic. Once she gets better, she will get PFT. I advised her to use CPAP. She recently got her CPAP machine. Further treatment will depend on the course in the hospital. Thank you, Dr. Bharti Sibley, for this consult. MD KIRA Evans//rosalee , 07:19 PM , 11:17 PM KARIN
[2017-05-13] VITALS (7 sets, daily range): BP systolic 115–136; BP diastolic 55–71; PULSE 80–92; RESP 16–20; TEMP 96.3–98.4; O2SAT 91–95
[2017-05-13 07:30] LABS: AUTOMATED NEUTROPHIL # 23.7 TH/MM3 (1.8-7.7); BASOPHIL # 0.2 TH/MM3 (0-0.2); BASOPHIL % 0.7 % (0.0-2.0); HEMATOCRIT 42.6 % (35.0-46.0); HEMOGLOBIN 13.7 GM/DL (11.6-15.3); LYMPHOCYTE # 1.3 TH/MM3 (1.0-4.8); MEAN CELL VOLUME 91.2 FL (80.0-100.0); MEAN CORPUSCULAR HEMOGLOBIN 29.4 PG (27.0-34.0); MEAN CORPUSCULAR HGB CONC 32.2 % (32.0-36.0); MEAN PLATELET VOLUME 9.2 FL (7.0-11.0); MONOCYTE # 0.8 TH/MM3 (0-0.9); NEUT % 91.3 % (16.0-70.0); PLATELET COUNT 224 TH/MM3 (150-450); RED BLOOD COUNT 4.67 MIL/MM3 (4.00-5.30); RED CELL DISTRIBUTION WIDTH 15.1 % (11.6-17.2)
[2017-05-13] MEDS: RESP: ALBUTEROL 2.5 MG/IPRATROPIUM 0.5 MG NEB (SCH) NEB ×3 (07:38→20:03)
[2017-05-13] MEDS: INSULIN ASPART SUPPLEMENTAL SCALE SQ SCH ×5 (08:00→21:52)
[2017-05-13] MEDS: SODIUM CHLORIDE 0.9% FLUSH 10 ML FLUSH IVF PRN (10:58)
[2017-05-13] MEDS: methylPREDNISolone SOD SUCC 40 MG/1 ML VIAL IV PUSH SCH ×2 (10:58→21:25)
[2017-05-13] MEDS: BUDESONIDE-FORMOTEROL 160/4.5 MCG INHALER INH SCH ×2 (10:58→21:25)
[2017-05-13] MEDS: HYDROCHLOROTHIAZIDE 25 MG TAB PO SCH (10:59)
[2017-05-13] MEDS: METHOCARBAMOL 500 MG TAB PO SCH ×4 (10:59→21:25)
--- NOTE | 2017-05-13 12:01 | HHI.PR ---
Subjective Remarks More symptomatic from a respiratory standpoint today. Patient blood cultures have come back with gram-positive cocci. Patient continues on current antibiotic regimen without difficulty. Objective Vitals Vital Signs Date Time Temp Pulse Resp B/P (MAP) Pulse Ox O2 Delivery O2 Flow Rate FiO2 05/13/17 09:02 96.3 87 16 126/58 (80) 91 05/13/17 07:42 95 Nasal Cannula 2.00 05/13/17 00:00 97.0 92 20 115/55 (75) 94 05/12/17 20:00 97.2 93 20 121/53 (75) 94 05/12/17 19:25 92 Nasal Cannula 2.00 05/12/17 16:00 98.2 102 20 133/64 (87) 94 05/12/17 15:32 20 05/12/17 12:00 97.5 94 24 157/70 (99) 92 I/O 05/12/17 05/12/17 05/12/17 05/13/17 05/13/17 05/13/17 06:59 14:59 22:59 06:59 14:59 22:59 Intake Total 1680 ml 120 ml Balance 1680 ml 120 ml Intake Oral 1680 ml 120 ml # Voids 3 3 # Bowel Movements 1 0 Result Diagram: 05/13/17 0615 05/12/17 1030 Objective Remarks GENERAL: This is a well-nourished, well-developed patient, short of breath and very weak CARDIOVASCULAR: Regular rate and rhythm without murmurs, gallops, or rubs. RESPIRATORY: Decreased airflow bilaterally without appreciable wheezes GASTROINTESTINAL: Abdomen soft, non-tender, nondistended. Normal active bowel sounds MUSCULOSKELETAL: Extremities without clubbing, cyanosis, or edema. NEURO: Alert & Oriented x4 to person, place, time, situation. Moves all ext x4 A/P Problem List: (1) VERONICA (acute kidney injury) ICD Code: N17.9 - Acute kidney failure, unspecified Plan: Continue with hydration, follow-up renal function (2) Hyperglycemia ICD Code: R73.9 - Hyperglycemia, unspecified Plan: Patient with remote history of diabetes related to steroids in the past ( related to Crohn's disease) She reports random blood sugars in her primary doctor's office in the 120s. Hemoglobin A1c is 7.4 Random blood sugar here is 190 and 462. Discussed with patient and spouse May be exacerbated by steroids at this time also (3) Asthma exacerbation ICD Code: J45.901 - Unspecified asthma with (acute) exacerbation Status: Acute Plan: Continue with nebulized bronchodilator therapy, steroids to taper, follow -up clinically With hypoxemic respiratory failure, sats 88%, improved on nasal cannula, pulmonary consult appreciated Concerning for underlying COPD given patient's prolonged tobacco exposure Continue IV Rocephin and azithromycin (4) HTN (hypertension) ICD Code: I10 - Essential (primary) hypertension Plan: On amlodipine, will add hydrochlorothiazide uncontrolled (5) Blood bacterial culture positive ICD Code: R78.81 - Bacteremia Plan: Staph coagulase negative, will follow for this likely contaminant Continue current empiric antibiotic plan Bharti Sibley MD May 13, 2017 12:00
[2017-05-13] MEDS: cefTRIAXone INJ 1,000 MG in SODIUM CHLORIDE 0.9% INJ 100 ML IV SCH (13:52)
[2017-05-13] MEDS: NAPROXEN 500 MG TAB PO PRN (13:53)
--- NOTE | 2017-05-13 16:08 | HHI.PR ---
Subjective Remarks 56 YOfemale with COPD/Br asthma exac, cough, small amount of sp Breathing betetr no fever No CP Objective Vital Signs Vital Signs Date Time Temp Pulse Resp B/P (MAP) Pulse Ox O2 Delivery O2 Flow Rate FiO2 05/13/17 13:06 97.4 87 18 121/71 (88) 92 05/13/17 09:02 96.3 87 16 126/58 (80) 91 05/13/17 07:42 95 Nasal Cannula 2.00 05/13/17 00:00 97.0 92 20 115/55 (75) 94 05/12/17 20:00 97.2 93 20 121/53 (75) 94 05/12/17 19:25 92 Nasal Cannula 2.00 I/O 05/12/17 05/12/17 05/12/17 05/13/17 05/13/17 05/13/17 07:00 15:00 23:00 07:00 15:00 23:00 Intake Total 1680 ml 120 ml Balance 1680 ml 120 ml Intake Oral 1680 ml 120 ml # Voids 3 3 # Bowel Movements 1 0 Result Diagram: 05/13/17 0615 05/12/17 1030 Objective Remarks GENERAL: Morbidly obese female, mild sob SKIN: Warm and dry. HEAD: Normocephalic. EYES: No scleral icterus. No injection or drainage. NECK: Supple, trachea midline. No JVD or lymphadenopathy. CARDIOVASCULAR: Regular rate and rhythm without murmurs, gallops, or rubs. RESPIRATORY: Breath sounds equal bilaterally. No accessory muscle use Exp rhonchi. GASTROINTESTINAL: Abdomen soft, non-tender, nondistended. MUSCULOSKELETAL: No cyanosis, or edema. BACK: Nontender without obvious deformity. No CVA tenderness. A/P Assessment and Plan COPD/Br asthma exac bronchitis DM HTN BRADY Obesity Nicotine use PLAN: Aerosol nebs Symbicort 2 puffs bid IV Solumedrol Cont Abx Check cultures DW pt and her . David Sanders MD May 13, 2017 16:08
[2017-05-13] MEDS: AZITHROMYCIN INJ 500 MG in SODIUM CHLOR 0.9% 250 ML INJ 250 ML IV SCH (18:20)
[2017-05-13] MEDS: SODIUM CHLOR 0.9% 1000 ML INJ 1,000 ML IV SCH (21:24)
[2017-05-13] MEDS: HEPARIN SODIUM - SQ 10,000 UNITS/ML VIAL SQ SCH (21:27)
[2017-05-14] VITALS (7 sets, daily range): BP systolic 116–170; BP diastolic 53–72; PULSE 76–96; RESP 18–22; TEMP 96.4–98.5; O2SAT 91–94
[2017-05-14] MEDS: SODIUM CHLOR 0.9% 1000 ML INJ 1,000 ML IV SCH (02:50)
[2017-05-14] MEDS: RESP: ALBUTEROL 2.5 MG/IPRATROPIUM 0.5 MG NEB (SCH) NEB ×3 (07:27→20:04)
[2017-05-14 07:28] LABS: CALCIUM 8.3 MG/DL (8.5-10.1)
[2017-05-14 07:29] LABS: BICARBONATE 33.3 MEQ/L (21.0-32.0)
[2017-05-14 07:33] LABS: CREATININE 0.73 MG/DL (0.50-1.00)
[2017-05-14] MEDS: INSULIN ASPART SUPPLEMENTAL SCALE SQ SCH ×5 (08:00→22:37)
[2017-05-14] MEDS: HEPARIN SODIUM - SQ 10,000 UNITS/ML VIAL SQ SCH ×2 (09:00→22:06)
--- NOTE | 2017-05-14 11:03 | HHI.PR ---
Subjective Remarks Patient seen and examined today for follow-up on asthma exacerbation, positive blood cultures, diabetes. Patient is improving. She is not requiring as much O2 supplementation. She does feel much better and is hoping to go home soon. Patient remains afebrile. Objective Vitals Vital Signs Date Time Temp Pulse Resp B/P (MAP) Pulse Ox O2 Delivery O2 Flow Rate FiO2 05/14/17 07:50 96.4 83 20 155/69 (97) 94 05/14/17 07:30 94 Nasal Cannula 2.00 05/14/17 00:16 98.0 76 22 138/62 (87) 92 05/13/17 20:43 97.9 92 18 120/58 (78) 91 05/13/17 20:05 94 Nasal Cannula 2.00 05/13/17 18:43 98.4 80 18 136/63 (87) 93 05/13/17 14:53 18 05/13/17 13:06 97.4 87 18 121/71 (88) 92 I/O 05/13/17 05/13/17 05/13/17 05/14/17 05/14/17 05/14/17 07:00 15:00 23:00 07:00 15:00 23:00 Intake Total 120 ml 4317 ml 774 ml Balance 120 ml 4317 ml 774 ml Intake Oral 120 ml 1800 ml IV Total 2517 ml 774 ml # Voids 3 6 2 # Bowel Movements 0 Result Diagram: 05/13/17 0615 05/14/17 0621 Imaging Last Impressions Chest X-Ray 05/11/17 1136 Signed Impressions: Service Date/Time: May 12:02 - CONCLUSION: Stable chest demonstrating COPD. No evidence of acute cardiac pulmonary process. Franko Messer MD Objective Remarks GENERAL: Well-developed, obese with BMI 46.4, in no acute distress. alert and orientated HEENT: Head is normocephalic without any lesions or masses noted. Facial features are symmetric. Eyes: Extraocular muscles are intact. Conjunctivae were clear. NECK: Supple without any masses. Trachea midline no deviation. No JVD, CARDIAC: Regular rhythm, regular rate. S1/S2 are heard. No murmurs gallops or rubs. LUNGS: Diminished breath sounds noted throughout,. No wheeze, rhonchi or rales. No use of accessory muscles on inspiration or expiration. ABDOMEN: Soft, nontender. Nondistended. Bowel sounds heard in all 4 quadrants. No organomegaly or masses. Negative rebound, negative guarding EXTREMITIES: No edema, pulses are equal bilaterally. No cyanosis or clubbing NEUROLOGY: Mood and affect appear appropriate. Cranial nerves II through XII grossly intact. Moving all extremities, speech is clear Urinary Catheter: No Vascular Central Line Catheter: No A/P Assessment and Plan Acute hypoxic respiratory failure secondary to asthma exacerbation/possible underlying COPD secondary to tobacco exposure Continue O2 supplementation maintain O2 sats greater than 92% Solu-Medrol 40 mg IV every 12 hours, changed to by mouth prednisone 20 mg twice daily Patient is on IV Rocephin and Zithromax, changed to by mouth Ceftin and Zithromax Emphasized use of incentive spirometry Home oxygen walk study was performed and patient will not require oxygen at home Veterinary Technologist following the patient Positive blood culture Staphylococcus epidermidis in 03/16 consistent with contamination Acute renal failure supposed to chronic kidney disease stage II Renal function improved with IV fluid Monitor renal function Diabetes, worsening secondary to acute stress, steroids Diabetic diet Start Levemir 5 units twice daily Accu-Cheks with sliding scale insulin Hemoglobin A1c 7.4 Consult family life educator Changed from Solu-Medrol to by mouth prednisone, continue monitor for improvement of glucose Hypertension Blood pressure mildly elevated Amlodipine 10 mg daily HCTZ 25 mg daily Add lisinopril 5 mg daily DVT prevention subcutaneous heparin Discharge Planning Discharge planning tomorrow after diabetic education and if patient continues to improve Buzz Brewster May 14, 2017 11:03
[2017-05-14] MEDS: BUDESONIDE-FORMOTEROL 160/4.5 MCG INHALER INH SCH ×2 (11:04→22:05)
[2017-05-14] MEDS: HYDROCHLOROTHIAZIDE 25 MG TAB PO SCH (11:05)
[2017-05-14] MEDS: METHOCARBAMOL 500 MG TAB PO SCH ×4 (11:05→22:06)
[2017-05-14] MEDS: LISINOPRIL 5 MG TAB PO SCH (11:15)
[2017-05-14] MEDS: INSULIN DETEMIR 100 UNITS/ML VIAL SQ SCH ×2 (11:15→22:35)
[2017-05-14] MEDS: CEFUROXIME AXETIL 250 MG TAB PO SCH ×2 (11:25→22:07)
[2017-05-14] MEDS: predniSONE 20 MG TAB PO SCH ×2 (11:25→22:06)
[2017-05-14] MEDS: AZITHROMYCIN 250 MG TAB PO SCH (11:25)
--- NOTE | 2017-05-14 17:52 | HHI.PR ---
Subjective Remarks 56 YOfemale with COPD/Br asthma exac, cough, small amount of sp Breathing better Ambulates no fever No CP Objective Vital Signs Vital Signs Date Time Temp Pulse Resp B/P (MAP) Pulse Ox O2 Delivery O2 Flow Rate FiO2 05/14/17 15:50 97.3 96 20 170/70 (103) 91 05/14/17 15:38 2.00 05/14/17 11:50 98.2 95 20 116/53 (74) 92 05/14/17 07:50 96.4 83 20 155/69 (97) 94 05/14/17 07:30 94 Nasal Cannula 2.00 05/14/17 00:16 98.0 76 22 138/62 (87) 92 05/13/17 20:43 97.9 92 18 120/58 (78) 91 05/13/17 20:05 94 Nasal Cannula 2.00 05/13/17 18:43 98.4 80 18 136/63 (87) 93 I/O 05/13/17 05/13/17 05/13/17 05/14/17 05/14/17 05/14/17 07:00 15:00 23:00 07:00 15:00 23:00 Intake Total 120 ml 4317 ml 774 ml Balance 120 ml 4317 ml 774 ml Intake Oral 120 ml 1800 ml IV Total 2517 ml 774 ml # Voids 3 6 2 # Bowel Movements 0 Result Diagram: 05/13/17 0615 05/14/17 0621 Objective Remarks GENERAL: Morbidly obese female, mild sob SKIN: Warm and dry. HEAD: Normocephalic. EYES: No scleral icterus. No injection or drainage. NECK: Supple, trachea midline. No JVD or lymphadenopathy. CARDIOVASCULAR: Regular rate and rhythm without murmurs, gallops, or rubs. RESPIRATORY: Breath sounds equal bilaterally. No accessory muscle use Exp rhonchi. GASTROINTESTINAL: Abdomen soft, non-tender, nondistended. MUSCULOSKELETAL: No cyanosis, or edema. BACK: Nontender without obvious deformity. No CVA tenderness. A/P Assessment and Plan COPD/Br asthma exac bronchitis DM HTN BRADY Obesity Nicotine use PLAN: Aerosol nebs Symbicort 2 puffs bid DC Solumedrol Prednisone 20 mg bid Cont Abx DW pt and her . DC Plans for home David Sanders MD May 14, 2017 17:52
[2017-05-14] MEDS: NAPROXEN 500 MG TAB PO PRN (22:09)
[2017-05-14] MEDS ORDERED: guaiFENesin/CODEINE SYRUP 200 MG/20 MG/10 ML CUP PO ONE (23:00)
[2017-05-15 00:03] VITALS: BP 133/56; PULSE 82; RESP 20; TEMP 97.9; O2SAT 91
[2017-05-15 06:39] LABS: AUTOMATED NEUTROPHIL # 8.4 TH/MM3 (1.8-7.7); BASOPHIL # 0.1 TH/MM3 (0-0.2); BASOPHIL % 0.7 % (0.0-2.0); EOSINOPHIL % 0.1 % (0.0-4.0); HEMATOCRIT 40.9 % (35.0-46.0); HEMOGLOBIN 13.3 GM/DL (11.6-15.3); LYMPH % 18.6 % (9.0-44.0); MEAN CELL VOLUME 90.6 FL (80.0-100.0); MEAN CORPUSCULAR HEMOGLOBIN 29.5 PG (27.0-34.0); MEAN CORPUSCULAR HGB CONC 32.5 % (32.0-36.0); MEAN PLATELET VOLUME 8.5 FL (7.0-11.0); MONO % 4.8 % (0.0-8.0); MONOCYTE # 0.5 TH/MM3 (0-0.9); NEUT % 75.8 % (16.0-70.0); PLATELET COUNT 217 TH/MM3 (150-450); RED BLOOD COUNT 4.51 MIL/MM3 (4.00-5.30); RED CELL DISTRIBUTION WIDTH 14.2 % (11.6-17.2)
[2017-05-15 06:42] LABS: BICARBONATE 36.6 MEQ/L (21.0-32.0); CALCIUM 8.1 MG/DL (8.5-10.1); MAGNESIUM 1.9 MG/DL (1.5-2.5)
[2017-05-15 06:46] LABS: CREATININE 0.74 MG/DL (0.50-1.00)
[2017-05-15 08:00] VITALS: BP 191/87; PULSE 82; RESP 18; TEMP 98.7; O2SAT 92
[2017-05-15] MEDS: INSULIN ASPART SUPPLEMENTAL SCALE SQ SCH ×3 (08:30→17:27)
[2017-05-15] MEDS: AZITHROMYCIN 250 MG TAB PO SCH (08:30)
[2017-05-15] MEDS: INSULIN DETEMIR 100 UNITS/ML VIAL SQ SCH (08:30)
[2017-05-15] MEDS: HYDROCHLOROTHIAZIDE 25 MG TAB PO SCH (08:31)
[2017-05-15] MEDS: CEFUROXIME AXETIL 250 MG TAB PO SCH (08:31)
[2017-05-15] MEDS: LISINOPRIL 5 MG TAB PO SCH (08:32)
[2017-05-15] MEDS: HEPARIN SODIUM - SQ 10,000 UNITS/ML VIAL SQ SCH (08:32)
[2017-05-15] MEDS: predniSONE 20 MG TAB PO SCH (08:35)
[2017-05-15] MEDS: METHOCARBAMOL 500 MG TAB PO SCH ×3 (08:36→17:27)
[2017-05-15] MEDS: RESP: ALBUTEROL 2.5 MG/IPRATROPIUM 0.5 MG NEB (SCH) NEB ×2 (08:52→13:16)
[2017-05-15 08:55] VITALS: O2SAT 94
[2017-05-15] MEDS: BUDESONIDE-FORMOTEROL 160/4.5 MCG INHALER INH SCH (09:55)
[2017-05-15] MEDS ORDERED: guaiFENesin/DEXTROMETHORPHAN 200 MG/20 MG/10 ML CUP PO PRN (10:00)
[2017-05-15] MEDS ORDERED: cloNIDine HCL 0.1 MG TAB PO PRN (11:30)
[2017-05-15 12:00] VITALS: BP 147/67; PULSE 92; RESP 18; TEMP 98.3; O2SAT 92
[2017-05-15] MEDS: hydrALAZINE HCL 25 MG TAB PO SCH ×2 (12:43→12:48)
[2017-05-15] MEDS ORDERED: HYDR25TA5 PO (14:49)
[2017-05-15] MEDS ORDERED: PRED10 PO (14:49)
[2017-05-15] MEDS ORDERED: GLUCKIT15 (14:49)
[2017-05-15] MEDS ORDERED: LANCETS1 MI1 (14:49)
[2017-05-15] MEDS ORDERED: HYDR-3799 PO (14:49)
[2017-05-15] MEDS ORDERED: GLIP-158 PO (14:49)
[2017-05-15] MEDS ORDERED: CEFU1TAB18 PO (14:49)
[2017-05-15] MEDS ORDERED: METF500T PO (14:49)
[2017-05-15] MEDS ORDERED: GLUCTES12 (14:49)
--- NOTE | 2017-05-15 14:55 | HHI.DCPOC ---
Discharge Care Plan Diagnosis: (1) Asthma exacerbation (2) Diabetes Goals to Promote Your Health * To prevent worsening of your condition and complications * To maintain your health at the optimal level Directions to Meet Your Goals Take your medications as prescribed Follow your dietary instruction Follow activity as directed Keep your appointments as scheduled Take your immunizations and boosters as scheduled If your symptoms worsen call your PCP, if no PCP go to Urgent Care Center or Emergency Room Smoking is Dangerous to Your Health. Avoid second hand smoke Call the 24-hour hour crisis hotline for domestic abuse at Buzz Brewster May 15, 2017 14:54
--- NOTE | 2017-05-15 15:02 | HHI.DS ---
Discharge Summary Admission Date May 11, 2017 at 13:17 Discharge Date: May 15, 2017 Admitting Diagnosis ASTHMA EXACERBATION (1) VERONICA (acute kidney injury) ICD Code: N17.9 - Acute kidney failure, unspecified (2) Hyperglycemia ICD Code: R73.9 - Hyperglycemia, unspecified (3) Asthma exacerbation ICD Code: J45.901 - Unspecified asthma with (acute) exacerbation Status: Acute (4) HTN (hypertension) ICD Code: I10 - Essential (primary) hypertension (5) Blood bacterial culture positive ICD Code: R78.81 - Bacteremia Procedures None Brief History - From Admission 56-year-old white female being admitted for sepsis. Patient was in her usual state of health until sometime last night which he began experiencing a gradual onset of shortness of breath. Says that she had a cough that also developed. She was taking her albuterol and Symbicort as prescribed but this would not alleviate her symptoms. Her symptoms progressed with time and thus she decided come to the emergency department. She denies having any fevers but does endorse chills. Denies any nausea vomiting. Denies having any chest pain. Denies any cyanosis. Emergency room she was found to have a fever of 100.9 with some tachycardia. Chest x-ray was obtained which I definitely reviewed and shows no acute infiltrates. Was given Rocephin duo nebs and Solu-Medrol in the emergency department. Patient denies ever being formally diagnosed with asthma as a child or having to take any inhalers as a child. CBC/BMP: 05/15/17 0522 05/15/17 0522 Significant Findings Laboratory Tests Test 05/12/17 15:03 05/13/17 06:15 05/14/17 06:21 05/15/17 05:22 Hemoglobin A1c 7.4 % (4.3-6.0) White Blood Count 26.0 TH/MM3 (4.0-11.0) Neutrophils (%) (Auto) 91.3 % (16.0-70.0) 75.8 % (16.0-70.0) Lymphocytes (%) (Auto) 5.0 % (9.0-44.0) Neutrophils # (Auto) 23.7 TH/MM3 (1.8-7.7) 8.4 TH/MM3 (1.8-7.7) Random Glucose 298 MG/DL (74-106) 236 MG/DL (74-106) Calcium Level 8.3 MG/DL (8.5-10.1) 8.1 MG/DL (8.5-10.1) Carbon Dioxide Level 33.3 MEQ/L (21.0-32.0) 36.6 MEQ/L (21.0-32.0) Anion Gap 4 MEQ/L (5-15) 2 MEQ/L (5-15) Estimat Glomerular Filtration Rate 82 ML/MIN (>89) 81 ML/MIN (>89) Imaging Last Impressions Chest X-Ray 05/11/17 1136 Signed Impressions: Service Date/Time: May 12:02 - CONCLUSION: Stable chest demonstrating COPD. No evidence of acute cardiac pulmonary process. Franko Messer MD PE at Discharge GENERAL: Well-developed, obese with BMI 46.4, in no acute distress. alert and orientated HEENT: Head is normocephalic without any lesions or masses noted. Facial features are symmetric. Eyes: Extraocular muscles are intact. Conjunctivae were clear. NECK: Supple without any masses. Trachea midline no deviation. No JVD, CARDIAC: Regular rhythm, regular rate. S1/S2 are heard. No murmurs gallops or rubs. LUNGS: Diminished breath sounds noted throughout,. No wheeze, rhonchi or rales. No use of accessory muscles on inspiration or expiration. ABDOMEN: Soft, nontender. Nondistended. Bowel sounds heard in all 4 quadrants. No organomegaly or masses. Negative rebound, negative guarding EXTREMITIES: No edema, pulses are equal bilaterally. No cyanosis or clubbing NEUROLOGY: Mood and affect appear appropriate. Cranial nerves II through XII grossly intact. Moving all extremities, speech is clear Hospital Course 56-year-old female who originally presented to hospital because of shortness of breath, cough, and she was taken albuterol and Symbicort which did not alleviate her symptoms and came to emergency department for evaluation. In emergency department she was found to have a fever 100.9, leukocytosis, tachycardia, possible asthmatic bronchitis. Chest x-ray did not indicate any acute cardiac pulmonary process. Patient had significant wheezing and was given duo nebs, Solu-Medrol. She was subsequently admitted to the hospital with sepsis criteria. Patient was admitted with IV antibiotics to include Rocephin, Zithromax. Patient continued on Solu-Medrol 125 mg every 8 hours. [employer] Casual[employer] Insurance Agent was consulted and followed the patient during her stay in the hospital. Due to the steroid use patient had worsening of her underlying diabetes, hypertension. Patient had restarted on insulin, Lantus. Hemoglobin A1c and was 7.4. Patient did present with blood pressure 206/107 which did improve but then worsened with steroid use. Blood pressure medication were adjusted and outpatient is stable on amlodipine 10 mg daily, HCTZ 25 mg daily and Apresoline 25 mg every 6 hours. Patient was started on lisinopril for renal protection secondary to diabetes, however patient refused to take medication stating that MUNA inhibitor make her cough. Diabetic education has been requested. Patient we made mandatory outpatient referral to systems coordinator for continued monitoring and management of her diabetes. Her respiratory standpoint patient tolerated treatment well with converting to by mouth prednisone, duo nebs, by mouth antibiotics. She is clinically stable this time. Plan discharge when seen by airport operations coordinator. Pt Condition on Discharge: Stable Discharge Disposition: Discharge Home Discharge Time: > 30 minutes Discharge Instructions DIET: Follow Instructions for: Diabetic Diet Activities you can perform: Regular-No Restrictions Follow up Referrals: Endocrinology - 1 Week with Vivek Valle MD PCP Follow-up - 1 Week Pulmonology - 2 Weeks with David Sanders MD New Medications: Blood Glucose Monitoring W/Device (Glucocom Blood Glucose Mo W/Device) 1 Kit Kit KIT .XX DIRECTED for Blood Sugar Management, #1 Glipizide ER (Glipizide XL) 2.5 Mg Clarke 2.5 MG PO DAILY for Blood Sugar Management, #30 TAB 0 Refills Take with breakfast or first main meal of the day Glucocom Test Strips (Glucocom Test Strips) 1 Neha Neha EA .XX DIRECTED for Blood Sugar Management, #1 Lancets (Lancets) 1 Mis Mis EA .XX DIRECTED for Blood Sugar Management, #1 0 Refills Metformin (Metformin) 500 Mg Tab 500 MG PO BIDPC for Blood Sugar Management, #60 TAB 0 Refills Prednisone (Prednisone) 10 Mg Tab 10 MG PO DAILY for Asthma Management, #21 TAB 0 Refills Prednisone 20 mg twice a day for 3 days, then prednisone 10 mg twice a day for 3 days, then prednisone 10 mg daily for 3 days Cefuroxime (Ceftin) 250 Mg Tab 250 MG PO Q12HR for Infection for 5 Days, TAB Hydralazine HCl (Hydralazine HCl) 25 Mg Tablet 25 MG PO Q8HR for Blood Pressure Management for 30 Days, TAB Hydrochlorothiazide (Hydrochlorothiazide) 25 Mg Tab 25 MG PO DAILY for Blood Pressure Management for 30 Days, #30 TAB Continued Medications: Amlodipine (Amlodipine) 10 Mg Tab 10 MG PO DAILY for Blood Pressure Management, #30 TAB 0 Refills Budesonide-Formoterol Inh (Symbicort Inh) 160-4.5 Mcg/Act Aero 2 PUFF INH Q12HR, #1 INHALER 0 Refills Methocarbamol (Methocarbamol) 500 Mg Tab 1000 MG PO QID for Muscle Spasm, #240 TAB 0 Refills Naproxen (Naprosyn) 500 Mg Tab 500 MG PO Q12HR PRN for PAIN SCALE 1 TO 10, #14 TAB 0 Refills Buzz Brewster May 15, 2017 15:02
[2017-05-15] MEDS ORDERED: CLON0.1T PO (17:23)
--- NOTE | 2017-05-15 18:58 | HHI.PR ---
Subjective Remarks 56 YOfemale with COPD/Br asthma exac, cough, small amount of sp Breathing better Ambulates no fever No CP Objective Vital Signs Vital Signs Date Time Temp Pulse Resp B/P (MAP) Pulse Ox O2 Delivery O2 Flow Rate FiO2 05/15/17 12:00 98.3 92 18 147/67 (93) 92 05/15/17 08:55 94 21 05/15/17 08:00 98.7 82 18 191/87 (121) 92 05/15/17 04:26 05/15/17 00:03 97.9 82 20 133/56 (81) 91 05/14/17 20:17 98.5 88 18 160/72 (101) 91 05/14/17 20:07 91 21 I/O 05/14/17 05/14/17 05/14/17 05/15/17 05/15/17 05/15/17 07:00 15:00 23:00 07:00 15:00 23:00 Intake Total 774 ml 600 ml 480 ml Balance 774 ml 600 ml 480 ml Intake Oral 600 ml 480 ml IV Total 774 ml # Voids 2 8 2 # Bowel Movements 1 0 Result Diagram: 05/15/1752105/15/17 0522 Objective Remarks GENERAL: Morbidly obese female, mild sob SKIN: Warm and dry. HEAD: Normocephalic. EYES: No scleral icterus. No injection or drainage. NECK: Supple, trachea midline. No JVD or lymphadenopathy. CARDIOVASCULAR: Regular rate and rhythm without murmurs, gallops, or rubs. RESPIRATORY: Breath sounds equal bilaterally. No accessory muscle use Exp rhonchi. GASTROINTESTINAL: Abdomen soft, non-tender, nondistended. MUSCULOSKELETAL: No cyanosis, or edema. BACK: Nontender without obvious deformity. No CVA tenderness. A/P Assessment and Plan COPD/Br asthma exac bronchitis DM HTN BRADY Obesity Nicotine use PLAN: Aerosol nebs Symbicort 2 puffs bid Prednisone 20 mg bid Cont Abx. DC Plans for home Will Fu in office. David Sanders MD May 15, 2017 18:58
== END 2017-05-15 18:12 | disposition home or self-care (01) | DRG 871 ==
LOC: PHED 11:30 → PHEDA 13:17 → PH3B 14:40
PROVIDERS: ADMIT Hospitalist; ATTEND Hospitalist
DX: A41.9 Sepsis, unspecified organism (principal); J96.01 Acute respiratory failure with hypoxia; N17.9 Acute kidney failure, unspecified; J45.901 Unspecified asthma with (acute) exacerbation; E09.65 Drug or chemical induced diabetes mellitus with hyperglycemia; K50.90 Crohn's disease, unspecified, without complications; Z68.42 Body mass index [BMI] 45.0-49.9, adult; E66.01 Morbid (severe) obesity due to excess calories; J44.9 Chronic obstructive pulmonary disease, unspecified; G47.33 Obstructive sleep apnea (adult) (pediatric); T38.0X5A Adverse effect of glucocorticoids and synthetic analogues, initial encounter; N18.2 Chronic kidney disease, stage 2 (mild); I12.9 Hypertensive chronic kidney disease with stage 1 through stage 4 chronic kidney disease, or unspecified chronic kidney disease; Z79.899 Other long term (current) drug therapy; Z72.0 Tobacco use; Z91.14 Patient's other noncompliance with medication regimen; Z79.51 Long term (current) use of inhaled steroids
CPT/HCPCS: 71045; 80048; 80053; 81001; 82948; 83036; 83735; 83880; 84145; 84484; 85025; 86403; 87040; 87077; 87186; 87205; 87804; 93005; 94150; 94618; 94640; 94664; 96365; 96375; J0456; J0696; J1644; J1815; J2920; J2930; J7030; J7050; J7512

== ENCOUNTER 2018-02-20 16:39 | Inpatient (IN) ==
--- NOTE | 2018-02-20 17:39 | ED ---
HPI General Chief complaint: Chest Pain Stated complaint: chest pain, trouble breathing Time Seen by Provider: 02/20/18 17:20 History of Present Illness HPI narrative: 57-year-old female with history of COPD, HTN, Crohn's in remission, DM type II [id number] presents the ED today complaining of shortness of breath and chest pain. Symptoms began roughly 3 months ago with shortness of breath and dyspnea on exertion. It has been steadily worsening and this week she began to have more severe shortness of breath and now chest pain. The chest pain is substernal and radiates to her back is pins and needles. It is worse with breathing. She is attempted to take left over Cipro and amoxicillin from previous infections to help with her symptoms however they provided minimal relief.. She also complains of a cough that produces clear frothy sputum. She reports lightheadedness, but denies any feelings of fevers, chills, nausea, vomiting, diarrhea, diaphoresis, leg swelling, or syncope. She has had some episodes of this in the past. She was hospitalized for COPD exacerbation in May 2017. He had a similar gradual onset of shortness of breath with a cough at that time, worse in the point where she needed to come to the ED. She was found to be febrile and tachycardic which point she was admitted for COPD exacerbation with complicating sepsis. She is in the hospital for 4 days during which she received antibiotic IV Rocephin and Zithromax, p.o. Solu-Medrol, and DuoNeb treatments. Due to steroids she had worsening of her underlying diabetes and hypertension during her stay. She improved and was discharged on amlodipine 10 HCTZ 25 and Apresoline 25 and told to follow-up with endocrinology, pulmonology , and her primary. However due to lack of insurance and funds she was unable to require follow-up care at that time. She currently sleeps in an upright bed with an additional 3 pillows. She has a CPAP machine for sleep apnea but it does not wear it due to difficulty breathing with it on. Related Data Home Medications Medication Instructions Recorded Confirmed albuterol sulfate [Ventolin HFA] 2 puff INHALATION QID 02/20/18 02/20/18 amlodipine 10 mg PO DAILY 02/20/18 02/20/18 budesonide-formoterol [Symbicort] 2 puff INHALATION BID 02/20/18 02/20/18 diclofenac sodium 75 mg PO BID 02/20/18 02/20/18 ergocalciferol (vitamin D2) 50,000 unit PO QWEEK 02/20/18 02/20/18 [Vitamin D2] furosemide 40 mg PO DAILY 02/20/18 02/20/18 glipizide 5 mg PO DAILY 02/20/18 02/20/18 hydralazine 25 mg PO TID 02/20/18 02/20/18 hydrochlorothiazide 25 mg PO DAILY 02/20/18 02/20/18 metformin 500 mg PO BID 02/20/18 02/20/18 Allergies Allergy/AdvReac Type Severity Reaction Status Date / Time No Known Allergies Allergy Verified 02/20/18 16:46 Review of Systems Constitutional Denies chills, Reports fatigue and Denies fever(s) ENT Denies headache(s), Denies sinus pain and Denies sore throat Cardiovascular Reports chest pain, Denies leg edema, Reports dyspnea and Reports dyspnea on exertion Respiratory Reports cough, Reports pain on inspiration, Reports dyspnea and Reports dyspnea on exertion Gastrointestinal Denies diarrhea, Denies nausea and Denies vomiting Genitourinary Denies urinary frequency and Denies urinary urgency Musculoskeletal Denies myalgias and Denies arthralgias Integumentary/Breasts Denies rash Neurologic Denies numbness and Denies tingling PMFSH Medical History Medical History Acute Crohn's disease (Acute) Arthritis (Acute) Asthma (Acute) COPD (chronic obstructive pulmonary disease) (Acute) Diabetes (Acute) Hypertension (Acute) Surgical History Surgical History Hx of cholecystectomy (Acute) Social History Social History Substance History: No History of Abuse Smoking Status: Former smoker How Often Do You Have a Drink Containing Alcohol: Never Recent Travel in [facility] within the Last 8 Weeks: No Recent Out of Country Travel within the Last 8 Weeks: No Immunization History Tetanus Immunization: >5 Years Exam Narrative Exam Narrative: GENERAL: Mildly ill-appearing and uncomfortable overweight female in no acute distress SKIN: Focused skin assessment warm/dry. HEAD: Atraumatic. Normocephalic. EYES: Pupils equal and round. No scleral icterus. No injection or drainage. ENT: No nasal bleeding or discharge. Mucous membranes pink and moist. NECK: Trachea midline. No JVD. CARDIOVASCULAR: Regular rate and rhythm. No murmur appreciated. RESPIRATORY: Significant wheezing worse on expiration in bilateral upper lobes while breath sounds were distant and bilateral lower lobes. No accessory muscle use while breathing. GASTROINTESTINAL: Abdomen soft, non-tender, nondistended. Hepatic and splenic margins not palpable. MUSCULOSKELETAL: No obvious deformities. No clubbing. No cyanosis. No edema. NEUROLOGICAL: Awake and alert. No obvious cranial nerve deficits. Motor grossly within normal limits. Normal speech. PSYCHIATRIC: Appropriate mood and affect; insight and judgment normal. Course Initial Documented Vital Signs Temperature 97.8 F 02/20/18 16:44 Pulse Rate 90 02/20/18 16:44 Respiratory Rate 24 02/20/18 16:44 Blood Pressure 173/80 H 02/20/18 16:44 Pulse Oximetry 90 L 02/20/18 16:44 Last Documented Vital Signs Temperature 97.8 F 02/20/18 16:44 Pulse Rate 88 02/20/18 17:02 Respiratory Rate 24 02/20/18 18:47 Blood Pressure 133/59 L 02/20/18 17:07 Pulse Oximetry 95 02/20/18 18:47 Medical Decision Making MDM Narrative Medical decision making narrative: 57-year-old female with history of COPD, hypertension, Crohn's in remission, non-insulin diabetes, and asthma since the ED today complaining of chest tightness and shortness of breath. The symptoms have progressed for the past 3 months and worsened to dyspnea on exertion and chest pain to the point where she cannot walk more than 3 steps.She describes the chest pain is substernal that radiates to the back as a pins and needles that worsens with breathing. Attempted to take she attempted to take Cipro and amoxicillin that she had leftover from previous infections for symptoms. But they provided minimal relief. Previous COPD exasperation in May 2017 for which she was admitted she was found to be septic. she stayed in the hospital for 4 days during which she had trouble with her underlying diabetes and hypertension due to steroids administered for COPD. She improved enough to be discharged on new blood pressure medication of amlodipine 10 HCTZ 25 and Apresoline 25. She is also to follow-up with endocrinology, pulmonology, and her primary however she was unable to follow-up due to lack of insurance and funds. Upon arrival his vital signs were blood pressure 173/80, temperature 97.8, HR 90, RR 24, pulse ox 90% O2 on room air. On exam patient was a mildly ill-appearing and mildly uncomfortable overweight female in no acute distress. Cardiac exam revealed regular rate and rhythm with no murmurs, rubs, or gallops. Pulmonary exam revealed significant wheezing in the upper lobes bilaterally with diminished breath sounds in the lower lobes bilaterally. She was not using any accessory muscles to breathe. Rest of the exam was unremarkable IV access was obtained and patient was placed on cardiac monitoring. She was also placed on 2 L of O2 sat due to her hypoxia. BNP, CK-MB, troponin were ordered to assess for any cardiac damage or congestive heart failure. CBC, CMP , and ABGs on room air were also ordered to assess the severity of her COPD exacerbation. Influenza antigen was also ordered. Chest x-ray 2 views PA and lateral was ordered to assess lung and heart status. Results are as follows: ABGs on room air revealed blood gas O2 sat of 85%, PCO2 of 54, PO2 of 54, HCO3 of 31, and a base excess of 6.3 CBC revealed a mild leukocytosis of 11.3 with mild left shift of 72.8%. There was no anemia or platelet abnormalities. CMP revealed increased CO2 34.2, decreased GFR 63, hyperglycemia at 179. There were no electrolyte abnormalities or liver enzyme abnormalities. Chest x-ray revealed no acute cardiopulmonary process. Influenza antigen was negative BNP was within normal limits With respiratory acidosis and leukocytosis along with the clinical picture, will start patient on DuoNeb treatments every 2 as needed. Steroids will be held for now due to complications with her diabetes and hypertension on her previous visit. She will be admitted to the hospital for further treatment of her COPD exacerbation. Medical Screen Exam Complete: Yes Emergency Medical Condition: Yes Differential Diagnosis Differential Diagnosis: COPD exacerbation versus congestive heart failure versus pneumonia versus influenza versus URI versus asthma exacerbation versus bronchiectasis versus bronchitis Medical Records Medical records reviewed: Yes I reviewed the patient's medical records. Lab Data Lab results reviewed: Yes I reviewed the patient's lab results. Result diagrams: 02/20/18 17:40 02/20/18 17:40 Lab Results 02/20/18 02/20/18 02/20/18 Range/Units 17:40 17:40 17:40 WBC 11.3 H (4.0-11.0) th/mm3 RBC 4.99 (4.00-5.30) mil/mm3 Hgb 15.0 (11.6-15.3) gm/dL Hct 46.1 H (35.0-46.0) % MCV 92.4 (80.0-100.0) fL MCH 30.1 (27.0-34.0) pg MCHC 32.6 (32.0-36.0) % RDW 15.9 (11.6-17.2) % Plt Count 205 (150-450) th/mm3 MPV 8.7 (7.0-11.0) fL Neut % (Auto) 72.8 H (16.0-70.0) % Lymph % (Auto) 20.6 (9.0-44.0) % Emmet % (Auto) 4.8 (0.0-8.0) % Eos % (Auto) 1.5 (0.0-4.0) % Baso % (Auto) 0.3 (0.0-2.0) % Neut # (Auto) 8.2 H (1.8-7.7) th/mm3 Lymph # (Auto) 2.3 (1.0-4.8) th/mm3 Emmet # (Auto) 0.5 (0.0-0.9) th/mm3 Eos # (Auto) 0.2 (0.0-0.4) th/mm3 Baso # (Auto) 0.0 (0.0-0.2) th/mm3 WBC Differential . Differential Comment Auto diff final Puncture Site Patient Temperature O2 Saturation (90-100) % ABG pH (7.380-7.420) ABG pCO2 (38-42) mmHg ABG pO2 (61-120) mmHg ABG HCO3 (22-26) mmol/L ABG O2 Content (12.0-20.0) Vol % ABG Base Excess (-2-2) mmol/L ABG Methemoglobin (0-2) % Dillon Test Hemoglobin (12.0-16.0) G/DL Carboxyhemoglobin (0-4) % O2 Delivery Device Inspired O2 % Critical Value Sodium 143 (136-145) meq/L Potassium 3.6 (3.5-5.1) meq/L Chloride 104 (98-107) meq/L Carbon Dioxide 34.2 H (21.0-32.0) meq/L Anion Gap 5 (5-15) meq/L BUN 9 (7-18) mg/dL Creatinine 0.91 (0.50-1.00) mg/dL Estimated GFR 63 L (>89) mL/min Random Glucose 179 H (74-106) mg/dL Calcium 8.9 (8.5-10.1) mg/dL Total Bilirubin 0.4 (0.2-1.0) mg/dL AST 13 L (15-37) U/L ALT 22 (10-53) U/L Alkaline Phosphatase 116 (45-117) U/L Total Creatine Kinase 107 Cancelled (26-192) U/L CK-MB (CK-2) 1.2 (0.5-3.6) ng/mL Troponin I Less than 0.02 L (0.02-0.05) ng/mL B-Natriuretic Peptide (0-100) pg/mL Total Protein 7.5 (6.4-8.2) g/dL Albumin 3.3 L (3.4-5.0) g/dL 02/20/18 02/20/18 Range/Units 17:40 17:50 WBC (4.0-11.0) th/mm3 RBC (4.00-5.30) mil/mm3 Hgb (11.6-15.3) gm/dL Hct (35.0-46.0) % MCV (80.0-100.0) fL MCH (27.0-34.0) pg MCHC (32.0-36.0) % RDW (11.6-17.2) % Plt Count (150-450) th/mm3 MPV (7.0-11.0) fL Neut % (Auto) (16.0-70.0) % Lymph % (Auto) (9.0-44.0) % Emmet % (Auto) (0.0-8.0) % Eos % (Auto) (0.0-4.0) % Baso % (Auto) (0.0-2.0) % Neut # (Auto) (1.8-7.7) th/mm3 Lymph # (Auto) (1.0-4.8) th/mm3 Emmet # (Auto) (0.0-0.9) th/mm3 Eos # (Auto) (0.0-0.4) th/mm3 Baso # (Auto) (0.0-0.2) th/mm3 WBC Differential Differential Comment Puncture Site Right radial Patient Temperature 98.6 O2 Saturation 85 L* (90-100) % ABG pH 7.38 (7.380-7.420) ABG pCO2 54 H* (38-42) mmHg ABG pO2 54 L* (61-120) mmHg ABG HCO3 31 H (22-26) mmol/L ABG O2 Content 16.6 (12.0-20.0) Vol % ABG Base Excess 6.3 H (-2-2) mmol/L ABG Methemoglobin 0.7 (0-2) % Dillon Test Y Hemoglobin 14.0 (12.0-16.0) G/DL Carboxyhemoglobin 4.7 H (0-4) % O2 Delivery Device Room air Inspired O2 21 % Critical Value Yes Sodium (136-145) meq/L Potassium (3.5-5.1) meq/L Chloride (98-107) meq/L Carbon Dioxide (21.0-32.0) meq/L Anion Gap (5-15) meq/L BUN (7-18) mg/dL Creatinine (0.50-1.00) mg/dL Estimated GFR (>89) mL/min Random Glucose (74-106) mg/dL Calcium (8.5-10.1) mg/dL Total Bilirubin (0.2-1.0) mg/dL AST (15-37) U/L ALT (10-53) U/L Alkaline Phosphatase (45-117) U/L Total Creatine Kinase (26-192) U/L CK-MB (CK-2) (0.5-3.6) ng/mL Troponin I (0.02-0.05) ng/mL B-Natriuretic Peptide 10 (0-100) pg/mL Total Protein (6.4-8.2) g/dL Albumin (3.4-5.0) g/dL Imaging Data Radiologist's impression: Chest X-Ray 02/20/18 17:29 CONCLUSION: No acute cardiopulmonary disease Discharge Plan Discharge Disposition Patient Disposition: ED Admit(ED Internal Use Only) Discharge Order Discharge Orders: ED Use Only Admit Order (Routine); Ordered 02/20/18 Ordered By: John Car Discharge Details Diagnosis: Asthma exacerbation in COPD, Hypoxemia, Diabetes mellitus, Hypertension Physicians Team ED Provider: John Car Primary Care Provider: UNKNOWN, Attending Provider: Aristeo Coulter Discharge Interventions Interventions: Vital Signs Last Done: 02/20/18 18:47 Status ED Status: Admitted Observation Patient
[2018-02-20 17:54] LABS: ABG Base Excess 6.3 mmol/L (-2-2); ABG PCO2 54 mmHg (38-42); ABG PO2 54 mmHg (61-120)
[2018-02-20 18:08] LABS: Baso % (Auto) 0.3 % (0.0-2.0); Eos # (Auto) 0.2 th/mm3 (0.0-0.4); Eos % (Auto) 1.5 % (0.0-4.0); Hematocrit 46.1 % (35.0-46.0); Lymph # (Auto) 2.3 th/mm3 (1.0-4.8); Lymph % (Auto) 20.6 % (9.0-44.0); Mean Corpuscular HGB Conc 32.6 % (32.0-36.0); Mean Corpuscular Hemoglobin 30.1 pg (27.0-34.0); Mean Corpuscular Volume 92.4 fL (80.0-100.0); Mean Platelet Volume 8.7 fL (7.0-11.0); Mono # (Auto) 0.5 th/mm3 (0.0-0.9); Mono % (Auto) 4.8 % (0.0-8.0); Neut # (Auto) 8.2 th/mm3 (1.8-7.7); Neut % (Auto) 72.8 % (16.0-70.0); Platelet Count 205 th/mm3 (150-450); Red Blood Count 4.99 mil/mm3 (4.00-5.30); Red Cell Distribution Width 15.9 % (11.6-17.2); White Blood Count 11.3 th/mm3 (4.0-11.0)
[2018-02-20 18:22] LABS: Alanine Aminotransferase 22 U/L (10-53); Albumin 3.3 g/dL (3.4-5.0); Anion Gap 5 meq/L (5-15); Aspartate Aminotransferase 13 U/L (15-37); Blood Urea Nitrogen 9 mg/dL (7-18); Calcium 8.9 mg/dL (8.5-10.1); Carbon Dioxide 34.2 meq/L (21.0-32.0); Chloride 104 meq/L (98-107); Glomerular Filtration Rate 63 mL/min (>89); Glucose,Random 179 mg/dL (74-106); Potassium 3.6 meq/L (3.5-5.1); Sodium 143 meq/L (136-145)
[2018-02-20 18:26] LABS: Alkaline Phosphatase 116 U/L (45-117); Creatine Kinase 107 U/L (26-192); Total Protein 7.5 g/dL (6.4-8.2)
--- NOTE | 2018-02-20 18:28 | XR ---
EXAM DATE: 02/20/2018 6:18 PM EST AGE/SEX: 57 years / Female INDICATIONS: . Short of breath with congestion and wheezing x3 months. CLINICAL DATA: This is the patient's initial encounter. Patient reports that signs and symptoms have been present for 3 months and indicates a pain score of 0/10. MEDICAL/SURGICAL HISTORY: Asthma. None. COMPARISON: [facility], CHEST SINGLE AP, 05/11/2017. . FINDINGS: PA and lateral views of the chest demonstrate the lungs to be symmetrically aerated without evidence of mass, infiltrate or effusion. The cardiomediastinal contours are unremarkable. Osseous structures are intact. CONCLUSION: No acute cardiopulmonary disease Electronically signed by: Fredi Mancini MD 02/20/2018 6:26 PM EST
[2018-02-20 18:39] LABS: Creatine Kinase MB 1.2 ng/mL (0.5-3.6)
[2018-02-20] MEDS ORDERED: Dextrose 50% in Water 50 ML Vial IV.PUSH PRN (19:07)
[2018-02-20] MEDS ORDERED: Bisacodyl 10 MG Supp RECTAL PRN (19:11)
[2018-02-20] MEDS: Azithromycin 250 MG Tablet PO SCH (20:30)
[2018-02-20] MEDS: Insulin NovoLOG Aspart Correctional Sugar Inj SQ SCH (21:25)
[2018-02-20] MEDS: Senna/Docusate Sodium 8.6/50 MG Tablet PO SCH (21:26)
--- NOTE | 2018-02-21 06:16 | P.HPIM ---
History of Present Illness Service: [facility] hospitalists . Primary Care Physician: UNKNOWN Chief Complaint: Shortness of breath History of Present Illness: Mrs. Lynn is a pleasant 57-year-old female with a history of asthma, COPD, acute Crohn's disease in remission, arthritis, diabetes mellitus, and hypertension who presented to the emergency room on 02/20/2018 complaining of shortness of breath with chest pain. The patient was found to be in COPD exacerbation and was admitted to the hospitalist service for medical management. The patient is seen in her hospital room. She reports having shortness of breath with minimal exertion including conversation accompanied by chest pain over the last week. She has been having shortness of breath over the past 3 months however. Currently, symptoms are rated as improved but were severe prior to emergency room visit. Her symptoms are accompanied by chills and cough with clear sputum. She denies any fever, nausea, vomiting, or diarrhea. Of note, her has pneumonia and the flu. Inpatient Certification: I certify that the inpatient services were ordered in accordance with Medicare regulations governing the order. This includes certification that hospital inpatient services are reasonable and necessary and in the case of services not specified as inpatient-only under 42 CFR 419.22(n), that they are appropriately provided as inpatient services in accordance to with the 2-midnight benchmark under 43 CFR 412.3(e) Estimated Total Length of Stay (Days): 3 Plans for Post Hospital Care: Not yet determined Review of Systems All other systems reviewed negative except as stated in HPI PMFSH - History History Provided By: Patient, Family Member - Medical History Medical History: Medical History (Last Updated 02/20/18 @ 17:02 by Bharit Fernandez RN) Acute Crohn's disease Arthritis Asthma COPD (chronic obstructive pulmonary disease) Diabetes Hypertension - Surgical History Surgical History: Surgical History (Last Updated 02/20/18 @ 17:02 by Bharti Fernandez RN) Hx of cholecystectomy - Tobacco History Second Hand Smoke Exposure: No Tobacco Use In Past 30 Days: No Smoking Status: Former smoker Tobacco Type: Cigarettes - Alcohol History How Often Do You Have a Drink Containing Alcohol: Never - Substance Use History Substance History: No History of Abuse - Travel History Recent Travel in the [place] Within the Last 8 Weeks: No Recent Travel Out of the Country Within the Last 8 Weeks: No - Immunization History Tetanus Immunization: Unable to Assess Hx Influenza Vaccine This Season: No Medications and Allergies Active Medications: Active Medications Acetaminophen (Tylenol) 650 mg PO Q4H PRN PRN Reason: Temp > 100.4 Al Hydroxide/Mg Hydroxide (Milk Of Magnesia Liq) 30 ml PO Q12H PRN PRN Reason: Mild Constipation Albuterol (Albuterol Neb (Prn)) 2.5 mg NEB Q2HR NEB PRN PRN Reason: SHORTNESS OF BREATH Albuterol (Duoneb Neb ([facility])) 1 ampul NEB Q6HR NEB [facility] Last Admin: 02/21/18 03:11 Dose: 1 ampul Azithromycin (Zithromax) 500 mg PO DAILY [facility] Stop: 02/22/18 09:01 Last Admin: 02/20/18 20:30 Dose: 500 mg Bisacodyl (Dulcolax Supp) 10 mg RECTAL DAILY PRN PRN Reason: SEVERE CONSITIPATION Dextrose (D50w Vial) 50 ml IV.PUSH UNSCH PRN PRN Reason: PER HYPOGLYCEMIA PROTOCOL Glucagon (Glucagon Inj) 1 mg OTHER PRN PRN PRN Reason: for Hypoglycemia Protocol Ceftriaxone Sodium 1,000 mg/ (Sodium Chloride) 100 mls @ 200 mls/hr IV.SIG Q24H [facility] Last Infusion: 02/20/18 23:23 Dose: Infused Insulin Aspart (Novolog Insulin Correctional Sugar Inj) 0 unit SQ ACHS [facility]; Protocol Last Admin: 02/20/18 21:25 Dose: Not Given Lactulose (Lactulose Liq) 30 ml PO DAILY PRN PRN Reason: SEVERE CONSITIPATION Ondansetron HCl (Zofran Inj) 4 mg IV.PUSH Q6H PRN PRN Reason: NAUSEA OR VOMITING Senna/Docusate Sodium (Sophy-Colace) 1 tab PO BID [facility] Last Admin: 02/20/18 21:26 Dose: Not Given Sennosides (Senokot) 17.2 mg PO Q12H PRN PRN Reason: Moderate Constipation Sodium Chloride (Ns Flush) 2 ml IV.FLUSH BID [facility] Last Admin: 02/20/18 21:25 Dose: 2 ml Sodium Chloride (Ns Flush) 2 ml IV.FLUSH PRN PRN PRN Reason: FLUSH AFTER USING IV ACCESS Sodium Chloride (Ns Flush) 2 ml IV.FLUSH BID [facility] Last Admin: 02/20/18 21:26 Dose: Not Given Sodium Chloride (Ns Flush) 2 ml IV.FLUSH PRN PRN PRN Reason: FLUSH AFTER USING IV ACCESS Allergies Allergy/AdvReac Type Severity Reaction Status Date / Time No Known Allergies Allergy Verified 02/20/18 16:46 Home Medications Medication Instructions Recorded Confirmed Type albuterol sulfate [Ventolin HFA] 2 puff INHALATION QID 02/20/18 02/20/18 History amlodipine 10 mg PO DAILY 02/20/18 02/20/18 History budesonide-formoterol [Symbicort] 2 puff INHALATION BID 02/20/18 02/20/18 History diclofenac sodium 75 mg PO BID 02/20/18 02/20/18 History ergocalciferol (vitamin D2) 50,000 unit PO QWEEK 02/20/18 02/20/18 History [Vitamin D2] furosemide 40 mg PO DAILY 02/20/18 02/20/18 History glipizide 5 mg PO DAILY 02/20/18 02/20/18 History hydralazine 25 mg PO TID 02/20/18 02/20/18 History hydrochlorothiazide 25 mg PO DAILY 02/20/18 02/20/18 History metformin 500 mg PO BID 02/20/18 02/20/18 History Exam Vital signs: Vital Signs 02/20/18 16:44 02/20/18 17:02 02/20/18 17:07 Temperature 97.8 F Pulse Rate 90 88 Respiratory Rate 24 30 H Blood Pressure 173/80 H 133/59 L Pulse Oximetry 90 L 90 L 94 L 02/20/18 18:47 02/20/18 19:53 02/20/18 20:35 Temperature Pulse Rate 80 85 Respiratory Rate 24 17 20 Blood Pressure 157/74 H Pulse Oximetry 95 94 L 02/20/18 20:36 02/20/18 21:03 02/20/18 21:34 Temperature 98.3 F Pulse Rate 90 89 Respiratory Rate 19 32 H Blood Pressure 144/73 H Pulse Oximetry 94 L 92 L 91 L 02/20/18 22:30 02/20/18 23:20 02/21/18 02:48 Temperature 98.3 F Pulse Rate 86 Respiratory Rate 21 18 Blood Pressure 149/65 H Pulse Oximetry 94 L 96 02/21/18 03:13 Temperature Pulse Rate 78 Respiratory Rate 18 Blood Pressure Pulse Oximetry 92 L Intake & Output 02/20/18 02/20/18 02/21/18 06:59 18:59 06:59 Intake Total 100 / 100 Balance 100 / 100 Weight 113.398 kg 113.398 kg Intake: IV 100 / 100 Rocephin Inj 1,000 MG In NS Inj 100 / 100 100 ML @ 200 mls/hr IV.SIG Q24H [facility] Rx#:[id number] Other: # Voids 1 Weight On Admission 119.3 kg Narrative: GENERAL: This is a morbidly obese older female patient, in no apparent distress. SKIN: No rashes, ecchymoses. Cool and dry. HEAD: Atraumatic. Normocephalic. EYES: No scleral icterus. No injection or drainage. ENT: Nose without bleeding, purulent drainage. NECK: Trachea midline. No JVD. CARDIOVASCULAR: Regular rate and rhythm without murmurs, gallops, or rubs. RESPIRATORY: Breath sounds diminished at bases but equal bilaterally. No wheezes , rales, or rhonchi. GASTROINTESTINAL: Abdomen soft, non-tender, nondistended. No guarding. MUSCULOSKELETAL: Extremities without clubbing, cyanosis, or edema. No calf tenderness. Chest pain is reproducible with palpation of anterior chest wall and midsternal region. NEUROLOGICAL: Awake and alert. Motor and sensory grossly within normal limits. Normal speech. . Results - Labs CBC & Chem 7: 02/20/18 17:40 02/20/18 17:40 Labs: Short CBC 02/20/18 Range/Units 17:40 WBC 11.3 H (4.0-11.0) th/mm3 Hgb 15.0 (11.6-15.3) gm/dL Hct 46.1 H (35.0-46.0) % Plt Count 205 (150-450) th/mm3 BMP 02/20/18 17:40 Sodium 143 Potassium 3.6 Chloride 104 Carbon Dioxide 34.2 H BUN 9 Creatinine 0.91 Calcium 8.9 Cardiac Enzymes 02/20/18 02/20/18 Range/Units 17:40 17:40 Total Creatine Kinase 107 Cancelled (26-192) U/L CK-MB (CK-2) 1.2 (0.5-3.6) ng/mL Troponin I Less than 0.02 L (0.02-0.05) ng/mL Liver Function 02/20/18 Range/Units 17:40 Total Bilirubin 0.4 (0.2-1.0) mg/dL AST 13 L (15-37) U/L ALT 22 (10-53) U/L Alkaline Phosphatase 116 (45-117) U/L Albumin 3.3 L (3.4-5.0) g/dL - Imaging Impressions Chest X-Ray 02/20/18 17:29 CONCLUSION: No acute cardiopulmonary disease Caprini VTE Risk Assessment Caprini VTE Risk Assessment: Moderate/High Risk (score >= 2) Caprini Risk Assessment Model: Point Value = 1 Point Value = 2 Point Value = 3 Point Value = 5 Age 41-60 Minor surgery BMI > 25 kg/m2 Swollen legs Varicose veins or History of unexplained or recurrent spontaneous Oral contraceptives or hormone replacement Sepsis (< 1 month) Serious lung disease, including pneumonia (< 1 month) Abnormal pulmonary function Acute myocardial infarction Congestive heart failure (< 1 month) History of inflammatory bowel disease Medical patient at bed rest Age 61-74 Arthroscopic surgery Major open surgery (> 45 min) Laparoscopic surgery (> 45 min) Malignancy Confined to bed (> 72 hours) Immobilizing plaster cast Central venous access Age >= 75 History of VTE Family history of VTE Factor V Leiden Prothrombin [id number] Lupus anticoagulant Anticardiolipin antibodies Elevated serum homocysteine Heparin-induced thrombocytopenia Other congenital or acquired thrombophilia Stroke (< 1 month) Elective arthroplasty Hip, pelvis, or leg fracture Acute spinal cord injury (< 1 month) Prophylaxis Regimen: Total Risk Factor Score Risk Level Prophylaxis Regimen 0-1 Low Early ambulation 2 Moderate Order ONE of the following: *Sequential Compression Device (SCD) *Heparin 5000 units SQ BID 3-4 Higher Order ONE of the following medications: *Heparin 5000 units SQ TID *Enoxaparin/Lovenox 40 mg SQ daily (WT < 150 kg, CrCl > 30 mL/min) *Enoxaparin/Lovenox 30 mg SQ daily (WT < 150 kg, CrCl > 10-29 mL/min) *Enoxaparin/Lovenox 30 mg SQ BID (WT < 150 kg, CrCl > 30 mL/min) AND/OR *Sequential Compression Device (SCD) 5 or more Highest Order ONE of the following medications: *Heparin 5000 units SQ TID (Preferred with Epidurals) *Enoxaparin/Lovenox 40 mg SQ daily (WT < 150 kg, CrCl > 30 mL/min) *Enoxaparin/Lovenox 30 mg SQ daily (WT < 150 kg, CrCl > 10-29 mL/min) *Enoxaparin/Lovenox 30 mg SQ BID (WT < 150 kg, CrCl > 30 mL/min) AND *Sequential Compression Device (SCD) Assessment and Plan - Plan Mrs. Lynn is a pleasant 57-year-old female with a history of asthma, COPD, acute Crohn's disease in remission, arthritis, diabetes mellitus, and hypertension who presented to the emergency room on 02/20/2018 complaining of shortness of breath with chest pain. The patient was found to be in COPD exacerbation and was admitted to the hospitalist service for medical management. COPD exacerbation Hypoxic hypercapnic respiratory failure -Oxygen saturation 85% on room air, PCO2 elevated at 54, PO2 low at 54 on admission -Chest x-ray shows no acute cardiopulmonary disease -Duo nebulizers every 6 hours with albuterol nebulizers every 2 hours as needed for shortness of breath or wheezing -Antibiotics: IV Zithromax and IV ceftriaxone -Monitor pulse oximetry and provide supplemental oxygen titrated to maintain saturation greater than 90-92% -BiPAP as needed for respiratory distress or AMS from hypercarbia -Incentive spirometry -resume home Symbicort -Solumedrol 40 mg IV q12h -Influenza testing in the ED negative for flu types a and B Atypical chest pain -appears musculoskeletal in etiology -Pain worse with coughing and reproducible with palpation of anterior chest wall midsternum -Cardiac enzymes negative and twelve-lead EKG personally reviewed with nonspecific T wave abnormality -will repeat cardiac enzymes and EKG this morning - follow results Type 2 Diabetes Mellitus -Resume home sulfonylurea glipizide and home biguanide metformin -Accu-Cheks before meals and at bedtime with low-dose NovoLog sliding scale coverage -Hypoglycemia protocol -Monitor trends and blood glucose readings and adjust treatments as indicated Hypertension -Resume home hydrochlorothiazide, hydralazine, and amlodipine -Monitor trends in blood pressure and adjust treatment accordingly DVT prophylaxis -Lovenox 40 mg subq daily Discussed Condition With: patient, RN, and Dr. Guthrie H&P: Quality - VTE Deep Vein Thrombosis/Pulmonary Embolism Present on Admission: No
[2018-02-21] MEDS: Insulin NovoLOG Aspart Correctional Sugar Inj SQ SCH ×5 (07:56→21:00)
[2018-02-21] MEDS: hydroCHLOROthiazide 25 MG Tablet PO SCH (10:13)
[2018-02-21] MEDS: hydrALAZINE 25 MG Tablet PO SCH ×3 (10:13→18:23)
[2018-02-21] MEDS: Enoxaparin Inj 40 MG/0.4 ML Syringe SQ SCH (10:14)
[2018-02-21] MEDS: Senna/Docusate Sodium 8.6/50 MG Tablet PO SCH ×3 (10:14→23:24)
[2018-02-21] MEDS: glipiZIDE 5 MG Tablet PO SCH (10:14)
[2018-02-21] MEDS: Furosemide 40 MG Tablet PO SCH (10:14)
[2018-02-21] MEDS: MethylPREDNISolone Sod Succinate Inj 40 MG/ML Vial IV.PUSH SCH ×2 (10:14→23:11)
[2018-02-21] MEDS: Azithromycin 250 MG Tablet PO SCH (10:14)
[2018-02-21] MEDS: amLODIPine 10 MG Tablet PO SCH (10:14)
[2018-02-21] MEDS: Budesonide-Formoterol 160/4.5 MCG 6 GM Inhaler INH SCH ×2 (10:16→23:19)
[2018-02-21 12:09] LABS: Creatine Kinase 79 U/L (26-192)
--- NOTE | 2018-02-21 21:33 | ECG ---
Date Performed: 02/21/2018 Time Performed: 08:12:46 PTAGE: 57 years EKG: Sinus rhythm LOW QRS VOLTAGE IN EXTREMITY LEADS BORDERLINE ECG PREVIOUS TRACING : 02/20/2018 17.37 Since the previous tracing, no significant change noted DOCTOR: Miguelito Arriaga Interpretating Date/Time 02/21/2018 21:32:12
--- NOTE | 2018-02-21 22:34 | ECG ---
Date Performed: 02/20/2018 Time Performed: 17:37:05 PTAGE: 57 years EKG: Sinus rhythm LOW QRS VOLTAGE PATTERN CONSISTENT WITH PULMONARY DISEASE SEPTAL MYOCARDIAL INFARCTION ABNORMAL ECG PREVIOUS ECG 05/11/2017 11.38: Compared to PREVIOUS TRACING , SINUS RHYTHM HAS REPLACED SINUS TACHYCARDIA DOCTOR: Miguelito Arriaga Interpretating Date/Time 02/21/2018 22:33:07
[2018-02-22] MEDS: Acetaminophen 325 MG Tablet PO PRN ×3 (05:10→22:06)
[2018-02-22] MEDS: Insulin NovoLOG Aspart Correctional Sugar Inj SQ SCH ×4 (08:20→22:07)
[2018-02-22] MEDS: hydrALAZINE 25 MG Tablet PO SCH ×3 (08:23→17:04)
[2018-02-22] MEDS: Azithromycin 250 MG Tablet PO SCH (08:23)
[2018-02-22] MEDS: Furosemide 40 MG Tablet PO SCH (08:23)
[2018-02-22] MEDS: amLODIPine 10 MG Tablet PO SCH (08:23)
[2018-02-22] MEDS: glipiZIDE 5 MG Tablet PO SCH (08:23)
[2018-02-22] MEDS: Enoxaparin Inj 40 MG/0.4 ML Syringe SQ SCH (08:24)
[2018-02-22] MEDS: MethylPREDNISolone Sod Succinate Inj 40 MG/ML Vial IV.PUSH SCH ×2 (08:24→21:49)
[2018-02-22] MEDS: hydroCHLOROthiazide 25 MG Tablet PO SCH (08:24)
[2018-02-22] MEDS: Senna/Docusate Sodium 8.6/50 MG Tablet PO SCH ×2 (08:25→21:46)
[2018-02-22] MEDS: Budesonide-Formoterol 160/4.5 MCG 6 GM Inhaler INH SCH ×2 (08:26→21:50)
--- NOTE | 2018-02-22 09:53 | P.PN ---
Subjective Interval history: Follow-up visit for COPD exacerbation, diabetes mellitus and atypical chest pain. Patient seen and examined sitting up in bed with significant other at bedside. She is coughing this morning after having breakfast. Continues to complain of shortness of breath with minimal exertion for example walking to the bathroom and back. Denies any chest pain, nausea, vomiting, diarrhea. Intermittent chills but no fevers, nonproductive cough. Call from nurse around 1800, patient with complaints of pain with coughing and SOB on exertion. Patient with 2 negative troponin and EKG, pain likely MS in nature due to ongoing cough from COPD. PRN Tessalon pearls and recheck chest x- ray. Physical Exam Vital signs: Vital Signs 02/21/18 10:54 02/21/18 12:00 02/21/18 15:40 Temperature 98.3 F Pulse Rate 77 75 96 H Respiratory Rate 18 18 20 Blood Pressure 147/73 H Pulse Oximetry 97 97 02/21/18 15:41 02/21/18 16:00 02/21/18 20:00 Temperature 97.8 F 98.5 F Pulse Rate 102 H 97 H Respiratory Rate 22 20 Blood Pressure 126/73 143/73 H Pulse Oximetry 91 L 90 L 92 L 02/21/18 21:02 02/22/18 00:00 02/22/18 00:30 Temperature 98.2 F Pulse Rate 94 H 87 Respiratory Rate 18 20 Blood Pressure 144/90 H Pulse Oximetry 93 L 93 L 02/22/18 03:20 02/22/18 04:00 02/22/18 08:00 Temperature 98.2 F 97.6 F Pulse Rate 93 H 97 H 96 H Respiratory Rate 25 H 20 15 Blood Pressure 110/56 L 155/72 H Pulse Oximetry 93 L 93 L 93 L 02/22/18 09:14 Temperature Pulse Rate 97 H Respiratory Rate 20 Blood Pressure Pulse Oximetry 92 L Intake & Output 02/21/18 02/22/18 02/22/18 18:59 06:59 18:59 Intake Total 1300 / 1300 Balance 1300 / 1300 Weight 122.6 kg Intake: IV 100 / 100 Rocephin Inj 1,000 MG In NS Inj 100 / 100 100 ML @ 200 mls/hr IV.SIG Q24H [facility] Rx#:[id number] Oral 1200 / 1200 Other: # Voids 4 Date of Last Bowel Movement 02/20/18 Narrative: GENERAL: This is a morbidly obese older female patient, in no apparent distress. SKIN: Cool and dry. HEAD: Atraumatic. Normocephalic. EYES: No scleral icterus. No injection or drainage. ENT: Nose without bleeding, purulent drainage. NECK: Trachea midline. CARDIOVASCULAR: Regular rate and rhythm without murmurs, gallops, or rubs. RESPIRATORY: Breath sounds diminished at bases but equal bilaterally. No rales, or rhonchi. Scant anterior upper lobe wheezing. GASTROINTESTINAL: Abdomen soft, non-tender, nondistended. No guarding. MUSCULOSKELETAL: Extremities without clubbing, cyanosis, or edema. No calf tenderness. NEUROLOGICAL: Awake and alert. Motor and sensory grossly within normal limits. Normal speech. . Results - Labs CBC & Chem 7: 02/22/18 11:32 02/22/18 11:32 Laboratory Results - last 24 hr 02/21/18 02/21/18 02/21/18 10:37 12:27 17:20 POC Glucose 177 H 237 H Total Creatine Kinase 79 Troponin I Less than 0.02 L 02/21/18 02/22/18 23:09 08:12 POC Glucose 180 H 292 H Total Creatine Kinase Troponin I Assessment and Plan - Plan Mrs. Lynn is a pleasant 57-year-old female with a history of asthma, COPD, acute Crohn's disease in remission, arthritis, diabetes mellitus, and hypertension who presented to the emergency room on 02/20/2018 complaining of shortness of breath with chest pain. The patient was found to be in COPD exacerbation and was admitted to the hospitalist service for medical management. COPD exacerbation Hypoxic hypercapnic respiratory failure -Oxygen saturation 85% on room air, PCO2 elevated at 54, PO2 low at 54 on admission -Chest x-ray shows no acute cardiopulmonary disease -Duo nebulizers every 6 hours with albuterol nebulizers every 2 hours as needed for shortness of breath or wheezing -On p.o. Zithromax and IV ceftriaxone, transition to Levaquin tomorrow -Monitor pulse oximetry and provide supplemental oxygen titrated to maintain saturation greater than 90-92% -BiPAP as needed for respiratory distress or AMS from hypercarbia -Incentive spirometry -resume home Symbicort -Solumedrol 40 mg IV q12h -Influenza testing in the ED negative for flu types a and B -Increase in WBC this a.m. likely reactive due to steroids, afebrile. -Check walk test. Atypical chest pain -appears musculoskeletal in etiology -Pain worse with coughing and reproducible with palpation of anterior chest wall midsternum -Cardiac enzymes negative and second EKG with low QRS voltage Type 2 Diabetes Mellitus -Continue glipizide and metformin -Accu-Cheks before meals and at bedtime with low-dose NovoLog sliding scale coverage -Monitor trends and blood glucose readings and adjust treatments as indicated Hypertension -Continue hydrochlorothiazide, hydralazine, and amlodipine -Monitor trends in blood pressure and adjust treatment accordingly DVT prophylaxis -Lovenox 40 mg subq daily Discussed Condition With: Patient and sourcing specialist Planning: Transition to p.o. ABX tomorrow, walk test if needed. Will DC home when ready.
[2018-02-22 12:02] LABS: Baso # (Auto) 0.1 th/mm3 (0.0-0.2); Baso % (Auto) 0.4 % (0.0-2.0); Hematocrit 46.2 % (35.0-46.0); Hemoglobin 15.5 gm/dL (11.6-15.3); Lymph # (Auto) 0.7 th/mm3 (1.0-4.8); Lymph % (Auto) 4.4 % (9.0-44.0); Mean Corpuscular HGB Conc 33.6 % (32.0-36.0); Mean Corpuscular Hemoglobin 30.8 pg (27.0-34.0); Mean Corpuscular Volume 91.6 fL (80.0-100.0); Mean Platelet Volume 8.4 fL (7.0-11.0); Mono # (Auto) 0.3 th/mm3 (0.0-0.9); Mono % (Auto) 1.9 % (0.0-8.0); Neut # (Auto) 15.3 th/mm3 (1.8-7.7); Neut % (Auto) 93.3 % (16.0-70.0); Platelet Count 218 th/mm3 (150-450); Red Blood Count 5.04 mil/mm3 (4.00-5.30); Red Cell Distribution Width 15.9 % (11.6-17.2); White Blood Count 16.4 th/mm3 (4.0-11.0)
[2018-02-22 12:25] LABS: Calcium 9.5 mg/dL (8.5-10.1); Carbon Dioxide 29.5 meq/L (21.0-32.0); Potassium 3.8 meq/L (3.5-5.1)
[2018-02-22] MEDS: Lidocaine 5% Patch T-DERMAL SCH (18:26)
[2018-02-22] MEDS: Benzonatate 100 MG Capsule PO PRN (18:27)
--- NOTE | 2018-02-22 19:45 | XR ---
EXAM DATE: 02/22/2018 7:27 PM EST AGE/SEX: 57 years / Female INDICATIONS: Short of breath. CLINICAL DATA: This is the patient's subsequent encounter. Patient reports that signs and symptoms h ave been present for 3 months and indicates a pain score of 4/10. MEDICAL/SURGICAL HISTORY: . COPD. Hypoxia. DM. Hypertension. Asthma. Cholecystectomy. [place] [facility] [place]. . FINDINGS: No significant new focal pleural or parenchymal opacities. The cardiomediastinal contours are unremar kable. Osseous structures are intact. CONCLUSION: 1. No acute cardiopulmonary disease. Electronically signed by: Terrence Aparicio MD Board Certified Radiologist 02/22/2018 7:44 PM ES T
--- NOTE | 2018-02-23 09:34 | P.PN ---
Subjective Interval history: Patient is seen and examined sitting up in bed in no acute distress, she complained overnight of intermittent cough, better this morning. Some ongoing shortness of breath with exertion, she was able to ambulate in the [place] without oxygen yesterday. She reports that her first walk went well however her second walk through her into a coughing fit. No fevers, chills, nausea, vomiting or diarrhea. We discussed walk test and possibility of needing home oxygen. Physical Exam Vital signs: Vital Signs 02/22/18 12:00 02/22/18 15:44 02/22/18 16:00 Temperature 97.7 F 98.1 F Pulse Rate 93 H 93 H 98 H Respiratory Rate 16 16 19 Blood Pressure 154/64 H 103/56 L Pulse Oximetry 95 95 93 L 02/22/18 18:00 02/22/18 19:55 02/22/18 21:24 Temperature 98.2 F 98.6 F Pulse Rate 99 H 94 H 99 H Respiratory Rate 16 17 18 Blood Pressure 127/64 132/67 Pulse Oximetry 93 L 97 02/23/18 00:33 02/23/18 01:30 02/23/18 03:00 Temperature 97.1 F L Pulse Rate 91 H 80 Respiratory Rate 17 18 20 Blood Pressure 144/65 H Pulse Oximetry 93 L 02/23/18 04:30 02/23/18 07:56 02/23/18 08:47 Temperature 98.1 F 98.1 F Pulse Rate 88 94 H 80 Respiratory Rate 16 18 18 Blood Pressure 135/61 131/79 Pulse Oximetry 96 95 95 Intake & Output 02/22/18 02/23/18 02/23/18 18:59 06:59 18:59 Intake Total 960 / 960 660 / 660 Output Total 0 / 0 Balance 960 / 960 660 / 660 Weight 123.8 kg Intake: IV 100 / 100 Rocephin Inj 1,000 MG In NS Inj 100 / 100 100 ML @ 200 mls/hr IV.SIG Q24H [facility] Rx#:[id number] Oral 960 / 960 560 / 560 Output: Stool 0 / 0 Other: # Voids 4 5 Date of Last Bowel Movement 02/20/18 02/20/18 # Bowel Movements 0 Narrative: GENERAL: This is a morbidly obese older female patient, in no apparent distress. SKIN: Cool and dry. HEAD: Atraumatic. Normocephalic. EYES: No scleral icterus. No injection or drainage. ENT: Nose without bleeding, purulent drainage. NECK: Trachea midline. CARDIOVASCULAR: Regular rate and rhythm without murmurs, gallops, or rubs. RESPIRATORY: Breath sounds diminished at bases but equal bilaterally. No rales, rhonchi or wheezes. GASTROINTESTINAL: Abdomen soft, non-tender, nondistended. No guarding. MUSCULOSKELETAL: Extremities without clubbing, cyanosis, or edema. No calf tenderness. NEUROLOGICAL: Awake and alert. Motor and sensory grossly within normal limits. Normal speech. . Results - Labs CBC & Chem 7: 02/22/18 11:32 02/22/18 11:32 Laboratory Results - last 24 hr 02/22/18 02/22/18 02/22/18 11:32 11:32 12:16 WBC 16.4 H RBC 5.04 Hgb 15.5 H Hct 46.2 H MCV 91.6 MCH 30.8 MCHC 33.6 RDW 15.9 Plt Count 218 MPV 8.4 Neut % (Auto) 93.3 H Lymph % (Auto) 4.4 L [place] % (Auto) 1.9 Eos % (Auto) 0.0 Baso % (Auto) 0.4 Neut # (Auto) 15.3 H Lymph # (Auto) 0.7 L [place] # (Auto) 0.3 Eos # (Auto) 0.0 Baso # (Auto) 0.1 WBC Differential . Differential Comment Auto diff final Sodium 140 Potassium 3.8 Chloride 100 Carbon Dioxide 29.5 Anion Gap 11 BUN 18 Creatinine 1.15 H Estimated GFR 48 L POC Glucose 204 H Random Glucose 232 H Calcium 9.5 02/22/18 02/22/18 02/23/18 16:52 22:01 08:04 WBC RBC Hgb Hct MCV MCH MCHC RDW Plt Count MPV Neut % (Auto) Lymph % (Auto) [place] % (Auto) Eos % (Auto) Baso % (Auto) Neut # (Auto) Lymph # (Auto) [place] # (Auto) Eos # (Auto) Baso # (Auto) WBC Differential Differential Comment Sodium Potassium Chloride Carbon Dioxide Anion Gap BUN Creatinine Estimated GFR POC Glucose 232 H 272 H 317 H Random Glucose Calcium - Imaging Impressions Chest X-Ray 02/22/18 00:00 CONCLUSION: 1. No acute cardiopulmonary disease. Assessment and Plan - Plan Mrs. Lynn is a pleasant 57-year-old female with a history of asthma, COPD, acute Crohn's disease in remission, arthritis, diabetes mellitus, and hypertension who presented to the emergency room on 02/20/2018 complaining of shortness of breath with chest pain. The patient was found to be in COPD exacerbation and was admitted to the hospitalist service for medical management. COPD exacerbation Hypoxic hypercapnic respiratory failure -Oxygen saturation 85% on room air, PCO2 elevated at 54, PO2 low at 54 on admission -Chest x-ray shows no acute cardiopulmonary disease -Duo nebulizers every 6 hours with albuterol nebulizers every 2 hours as needed for shortness of breath or wheezing -On p.o. Zithromax and IV ceftriaxone -Monitor pulse oximetry and provide supplemental oxygen titrated to maintain saturation greater than 90-92% -BiPAP as needed for respiratory distress or AMS from hypercarbia -Incentive spirometry -Continue home Symbicort -Solumedrol 40 mg IV, decrease to daily -Influenza testing in the ED negative for flu types a and B -Recheck chest x-ray late yesterday negative. -Increase in WBC likely reactive due to steroids, afebrile. -Failed walk test, will need home O2, case maker to assist with pricing as she will need to pay for this out of pocket due to lack of insurance. Atypical chest pain -appears musculoskeletal in etiology -Pain worse with coughing and reproducible with palpation of anterior chest wall midsternum -Cardiac enzymes negative and second EKG with low QRS voltage Type 2 Diabetes Mellitus -Continue glipizide and metformin -Accu-Cheks with insulin sliding scale coverage. -Blood sugars noted to be on the high side, increase sliding scale coverage to medium. Hypertension -Continue hydrochlorothiazide, hydralazine, and amlodipine -Monitor trends in blood pressure and adjust treatment accordingly DVT prophylaxis -Lovenox 40 mg subq daily Discussed Condition With: Discussed with patient, significant other, nurse and case maker. Discharge Planning: Will need home oxygen, case maker to assist with arrangement as she will need to pay for this out of pocket.
[2018-02-23] MEDS: Furosemide 40 MG Tablet PO SCH (10:11)
[2018-02-23] MEDS: amLODIPine 10 MG Tablet PO SCH (10:11)
[2018-02-23] MEDS: Enoxaparin Inj 40 MG/0.4 ML Syringe SQ SCH (10:12)
[2018-02-23] MEDS: glipiZIDE 5 MG Tablet PO SCH (10:12)
[2018-02-23] MEDS: Senna/Docusate Sodium 8.6/50 MG Tablet PO SCH ×2 (10:12→22:11)
[2018-02-23] MEDS: MethylPREDNISolone Sod Succinate Inj 40 MG/ML Vial IV.PUSH SCH (10:12)
[2018-02-23] MEDS: hydrALAZINE 25 MG Tablet PO SCH ×3 (10:12→17:18)
[2018-02-23] MEDS: hydroCHLOROthiazide 25 MG Tablet PO SCH (10:12)
[2018-02-23] MEDS: Insulin NovoLOG Aspart Correctional Sugar Inj SQ SCH ×4 (10:13→22:28)
[2018-02-23] MEDS: Lidocaine 5% Patch T-DERMAL SCH (10:13)
[2018-02-23] MEDS: Budesonide-Formoterol 160/4.5 MCG 6 GM Inhaler INH SCH ×2 (10:18→22:12)
[2018-02-23] MEDS: Acetaminophen 325 MG Tablet PO PRN (23:39)
[2018-02-24] MEDS: Insulin NovoLOG Aspart Correctional Sugar Inj SQ SCH ×4 (08:00→22:05)
[2018-02-24] MEDS: glipiZIDE 5 MG Tablet PO SCH (08:41)
[2018-02-24] MEDS: amLODIPine 10 MG Tablet PO SCH (08:41)
[2018-02-24] MEDS: MethylPREDNISolone Sod Succinate Inj 40 MG/ML Vial IV.PUSH SCH (08:41)
[2018-02-24] MEDS: Enoxaparin Inj 40 MG/0.4 ML Syringe SQ SCH (08:42)
[2018-02-24] MEDS: Furosemide 40 MG Tablet PO SCH (08:42)
[2018-02-24] MEDS: hydrALAZINE 25 MG Tablet PO SCH ×3 (08:42→18:36)
[2018-02-24] MEDS: hydroCHLOROthiazide 25 MG Tablet PO SCH (08:42)
[2018-02-24] MEDS: Senna/Docusate Sodium 8.6/50 MG Tablet PO SCH ×2 (08:52→22:05)
[2018-02-24] MEDS: Budesonide-Formoterol 160/4.5 MCG 6 GM Inhaler INH SCH ×2 (08:52→21:25)
[2018-02-24] MEDS: Lidocaine 5% Patch T-DERMAL SCH (09:00)
--- NOTE | 2018-02-24 16:09 | P.PNIM ---
Subjective Interval history: Patient is seen resting quietly in bed. is at bedside. Patient denies any increased breathing problems. No chest pain. No nausea vomiting or diarrhea. Physical Exam Vital signs: Last Vital Signs Temp 98.3 F 02/24/18 12:57 Pulse 87 02/24/18 14:58 Resp 23 02/24/18 14:58 BP 136/67 02/24/18 12:57 Pulse Ox 93 L 02/24/18 12:57 Intake & Output 02/22/18 02/23/18 02/24/18 02/25/18 06:59 06:59 06:59 06:59 Intake Total 1300 / 1300 1620 / 1620 1000 / 1000 Output Total 0 / 0 Balance 1300 / 1300 1620 / 1620 1000 / 1000 Weight 122.6 kg 123.8 kg 121.3 kg Narrative: GENERAL: Obese, well-developed adult female in no distress. SKIN: Warm and dry. HEAD: Atraumatic. Normocephalic. CARDIOVASCULAR: Regular rate and rhythm without murmurs, gallops, or rubs. RESPIRATORY: Breath sounds diminished at bases but equal bilaterally. No rales, rhonchi or wheezes. GASTROINTESTINAL: Abdomen soft, non-tender, nondistended. No guarding. MUSCULOSKELETAL: Extremities without clubbing, cyanosis, or edema. No calf tenderness. NEUROLOGICAL: Awake and alert. Motor and sensory grossly within normal limits. Normal speech. . Results Labs CBC & Chem 7: 02/22/18 11:32 02/22/18 11:32 Assessment and Plan Plan Mrs. Lynn is a pleasant 57-year-old female with a history of asthma, COPD, acute Crohn's disease in remission, arthritis, diabetes mellitus, and hypertension who presented to the emergency room on 02/20/2018 complaining of shortness of breath with chest pain. The patient was found to be in COPD exacerbation and was admitted to the hospitalist service for medical management. COPD exacerbation Hypoxic hypercapnic respiratory failure -Oxygen saturation 85% on room air, PCO2 elevated at 54, PO2 low at 54 on admission -Chest x-ray shows no acute cardiopulmonary disease -Duo nebulizers every 6 hours with albuterol nebulizers every 2 hours as needed for shortness of breath or wheezing -On p.o. Zithromax and IV ceftriaxone -Monitor pulse oximetry and provide supplemental oxygen titrated to maintain saturation greater than 90-92% -BiPAP as needed for respiratory distress or AMS from hypercarbia -Incentive spirometry -Continue home Symbicort -Solumedrol 40 mg IV, decrease to daily and taper -Influenza testing in the ED negative for flu types a and B -Recheck chest x-ray late yesterday negative. -Increase in WBC likely reactive due to steroids, afebrile. -Failed walk test, will need home O2, case management coordinator to assist with pricing as she will need to pay for this out of pocket due to lack of insurance. Atypical chest pain -appears musculoskeletal in etiology -Pain worse with coughing and reproducible with palpation of anterior chest wall midsternum -Cardiac enzymes negative and second EKG with low QRS voltage Type 2 Diabetes Mellitus -Continue glipizide and metformin -Accu-Cheks with insulin sliding scale coverage. -Blood sugars noted to be on the high side, increase sliding scale coverage to medium. Hypertension -Continue hydrochlorothiazide, hydralazine, and amlodipine -Monitor trends in blood pressure and adjust treatment accordingly DVT prophylaxis -Lovenox 40 mg subq daily Discussed Condition With: Discussed with patient, significant other, nurse and case management coordinator. Discharge Planning: Home. Will need home oxygen, case management coordinator to assist with arrangement as she will need to pay for this out of pocket. Progress Note: Quality VTE Deep Vein Thrombosis/Pulmonary Embolism Present on Admission: No
[2018-02-24] MEDS: Benzonatate 100 MG Capsule PO PRN (18:38)
[2018-02-25] MEDS: MethylPREDNISolone Sod Succinate Inj 40 MG/ML Vial IV.PUSH SCH (08:59)
[2018-02-25] MEDS: amLODIPine 10 MG Tablet PO SCH (08:59)
[2018-02-25] MEDS: Enoxaparin Inj 40 MG/0.4 ML Syringe SQ SCH (08:59)
[2018-02-25] MEDS: glipiZIDE 5 MG Tablet PO SCH (09:00)
[2018-02-25] MEDS: hydrALAZINE 25 MG Tablet PO SCH ×3 (09:00→18:10)
[2018-02-25] MEDS: Furosemide 40 MG Tablet PO SCH (09:00)
[2018-02-25] MEDS: Lidocaine 5% Patch T-DERMAL SCH (09:03)
[2018-02-25] MEDS: hydroCHLOROthiazide 25 MG Tablet PO SCH (09:07)
[2018-02-25] MEDS: Benzonatate 100 MG Capsule PO PRN (09:15)
[2018-02-25] MEDS: Budesonide-Formoterol 160/4.5 MCG 6 GM Inhaler INH SCH ×2 (09:18→21:00)
[2018-02-25] MEDS: Senna/Docusate Sodium 8.6/50 MG Tablet PO SCH ×2 (09:18→21:17)
[2018-02-25] MEDS: Insulin NovoLOG Aspart Correctional Sugar Inj SQ SCH ×4 (09:19→23:29)
--- NOTE | 2018-02-25 17:28 | P.PNIM ---
Subjective Interval history: Patient is seen lying comfortably in bed. is at bedside. No new complaints or concerns. They are working on getting home oxygen-discussed the option of possibly buying their own used concentrator. Physical Exam Vital signs: Last Vital Signs Temp 97.8 F 02/25/18 16:00 Pulse 90 02/25/18 16:00 Resp 18 02/25/18 16:00 BP 141/76 H 02/25/18 16:00 Pulse Ox 94 L 02/25/18 16:00 Intake & Output 02/23/18 02/24/18 02/25/18 02/26/18 06:59 06:59 06:59 06:59 Intake Total 1620 / 1620 1000 / 1000 1780 / 1780 Output Total 0 / 0 Balance 1620 / 1620 1000 / 1000 1780 / 1780 Weight 123.8 kg 121.3 kg 121.3 kg Narrative: GENERAL: Obese, well-developed adult female in no distress. SKIN: Warm and dry. HEAD: Atraumatic. Normocephalic. CARDIOVASCULAR: Regular rate and rhythm without murmurs, gallops, or rubs. RESPIRATORY: Breath sounds diminished at bases but equal bilaterally. No rales, rhonchi or wheezes. GASTROINTESTINAL: Abdomen soft, non-tender, nondistended. No guarding. MUSCULOSKELETAL: Extremities without clubbing, cyanosis, or edema. No calf tenderness. NEUROLOGICAL: Awake and alert. Motor and sensory grossly within normal limits. Normal speech. . Results Labs CBC & Chem 7: 02/22/18 11:32 02/22/18 11:32 Assessment and Plan Plan Mrs. Lynn is a pleasant 57-year-old female with a history of asthma, COPD, acute Crohn's disease in remission, arthritis, diabetes mellitus, and hypertension who presented to the emergency room on 02/20/2018 complaining of shortness of breath with chest pain. The patient was found to be in COPD exacerbation and was admitted to the hospitalist service for medical management. COPD exacerbation Hypoxic hypercapnic respiratory failure -Oxygen saturation 85% on room air, PCO2 elevated at 54, PO2 low at 54 on admission -Chest x-ray shows no acute cardiopulmonary disease -Duo nebulizers every 6 hours with albuterol nebulizers every 2 hours as needed for shortness of breath or wheezing -On p.o. Zithromax and IV ceftriaxone -Monitor pulse oximetry and provide supplemental oxygen titrated to maintain saturation greater than 90-92% -BiPAP as needed for respiratory distress or AMS from hypercarbia -Incentive spirometry -Continue home Symbicort -Solumedrol 40 mg IV, decrease to daily (02/24); taper -Influenza testing in the ED negative for flu types a and B -Increase in WBC likely reactive due to steroids, afebrile. -Failed walk test, will need home O2, family independence case manager to assist with pricing as she will need to pay for this out of pocket due to lack of insurance. Atypical chest pain -appears musculoskeletal in etiology -Pain worse with coughing and reproducible with palpation of anterior chest wall midsternum -Cardiac enzymes negative and second EKG with low QRS voltage Type 2 Diabetes Mellitus -Continue glipizide and metformin -Accu-Cheks with insulin sliding scale coverage. -Blood sugars noted to be on the high side, increase sliding scale coverage to medium. Hypertension -Continue hydrochlorothiazide, hydralazine, and amlodipine -Monitor trends in blood pressure and adjust treatment accordingly DVT prophylaxis -Lovenox 40 mg subq daily Discussed Condition With: Discussed with patient, significant other, nurse and family independence case manager. Discharge Planning: Home. Will need home oxygen, family independence case manager to assist with arrangement as she will need to pay for this out of pocket. Progress Note: Quality VTE Deep Vein Thrombosis/Pulmonary Embolism Present on Admission: No
[2018-02-26] MEDS: amLODIPine 10 MG Tablet PO SCH (09:45)
[2018-02-26] MEDS: Furosemide 40 MG Tablet PO SCH (09:45)
[2018-02-26] MEDS: hydrALAZINE 25 MG Tablet PO SCH ×3 (09:45→17:04)
[2018-02-26] MEDS: hydroCHLOROthiazide 25 MG Tablet PO SCH (09:45)
[2018-02-26] MEDS: glipiZIDE 5 MG Tablet PO SCH (09:46)
[2018-02-26] MEDS: Lidocaine 5% Patch T-DERMAL SCH (09:46)
[2018-02-26] MEDS: Enoxaparin Inj 40 MG/0.4 ML Syringe SQ SCH (09:46)
[2018-02-26] MEDS: Senna/Docusate Sodium 8.6/50 MG Tablet PO SCH ×2 (09:47→21:35)
[2018-02-26] MEDS: MethylPREDNISolone Sod Succinate Inj 40 MG/ML Vial IV.PUSH SCH (09:47)
[2018-02-26] MEDS: Budesonide-Formoterol 160/4.5 MCG 6 GM Inhaler INH SCH ×2 (09:48→21:17)
[2018-02-26] MEDS: Insulin NovoLOG Aspart Correctional Sugar Inj SQ SCH ×4 (09:48→21:33)
[2018-02-26 11:16] LABS: Baso # (Auto) 0.1 th/mm3 (0.0-0.2); Baso % (Auto) 0.4 % (0.0-2.0); Eos # (Auto) 0.2 th/mm3 (0.0-0.4); Eos % (Auto) 1.3 % (0.0-4.0); Hematocrit 47.2 % (35.0-46.0); Hemoglobin 15.7 gm/dL (11.6-15.3); Lymph # (Auto) 3.4 th/mm3 (1.0-4.8); Lymph % (Auto) 25.7 % (9.0-44.0); Mean Corpuscular HGB Conc 33.3 % (32.0-36.0); Mean Corpuscular Hemoglobin 30.8 pg (27.0-34.0); Mean Corpuscular Volume 92.4 fL (80.0-100.0); Mean Platelet Volume 8.3 fL (7.0-11.0); Mono # (Auto) 0.9 th/mm3 (0.0-0.9); Mono % (Auto) 6.6 % (0.0-8.0); Neut # (Auto) 8.6 th/mm3 (1.8-7.7); Platelet Count 209 th/mm3 (150-450); Red Cell Distribution Width 16.3 % (11.6-17.2); White Blood Count 13.1 th/mm3 (4.0-11.0)
[2018-02-26 11:40] LABS: Calcium 8.5 mg/dL (8.5-10.1); Carbon Dioxide 41.5 meq/L (21.0-32.0)
[2018-02-26 11:43] LABS: Potassium 2.9 meq/L (3.5-5.1)
[2018-02-26] MEDS ORDERED: Potassium Chlor 10 mEq Premix 10 MEQ/100 ML PIGGYBACK IV.SIG ONE (12:30)
--- NOTE | 2018-02-26 17:27 | P.PNIM ---
Subjective Interval history: Patient is seen sitting on side of bed. No new concerns. She is currently getting potassium replacement by IV; tells me it is burning intolerably. Still trying to arrange for home O2. Physical Exam Vital signs: Last Vital Signs Temp 97.2 F L 02/26/18 16:45 Pulse 85 02/26/18 16:45 Resp 24 02/26/18 16:45 BP 161/84 H 02/26/18 16:45 Pulse Ox 91 L 02/26/18 16:45 Intake & Output 02/24/18 02/25/18 02/26/18 02/27/18 06:59 06:59 06:59 06:59 Intake Total 1000 / 1000 1780 / 1780 1060 / 1060 Balance 1000 / 1000 1780 / 1780 1060 / 1060 Weight 121.3 kg 121.3 kg 121.3 kg Narrative: GENERAL: Obese, well-developed adult female in no distress. SKIN: Warm and dry. HEAD: Atraumatic. Normocephalic. CARDIOVASCULAR: Regular rate and rhythm. RESPIRATORY: Breath sounds diminished at bases but equal bilaterally. No rales, rhonchi or wheezes. GASTROINTESTINAL: Abdomen soft, non-tender, nondistended. No guarding. MUSCULOSKELETAL: Extremities without clubbing, cyanosis, or edema. No calf tenderness. NEUROLOGICAL: Awake and alert. Motor and sensory grossly within normal limits. Normal speech. . Results Labs CBC & Chem 7: 02/26/18 10:38 02/26/18 10:38 Assessment and Plan Plan Mrs. Lynn is a pleasant 57-year-old female with a history of asthma, COPD, acute Crohn's disease in remission, arthritis, diabetes mellitus, and hypertension who presented to the emergency room on 02/20/2018 complaining of shortness of breath with chest pain. The patient was found to be in COPD exacerbation and was admitted to the hospitalist service for medical management. COPD exacerbation Hypoxic hypercapnic respiratory failure -At admit: Oxygen saturation 85% on room air, PCO2 elevated at 54, PO2 low at 54 on admission -Chest x-ray shows no acute cardiopulmonary disease -Duo nebulizers every 6 hours with albuterol nebulizers every 2 hours as needed for shortness of breath or wheezing -On IV ceftriaxone -Monitor pulse oximetry and provide supplemental oxygen titrated to maintain saturation greater than 90-92% -BiPAP as needed for respiratory distress or AMS from hypercarbia -Incentive spirometry -Continue home Symbicort -Solumedrol 40 mg IV, decrease to daily (02/24); taper -Influenza testing in the ED negative for flu types a and B -Increase in WBC likely reactive due to steroids, afebrile. -Failed walk test, will need home O2, case aide to assist with pricing as she will need to pay for this out of pocket due to lack of insurance. Atypical chest pain -appears musculoskeletal in etiology -Pain worse with coughing and reproducible with palpation of anterior chest wall midsternum -Cardiac enzymes negative and second EKG with low QRS voltage Type 2 Diabetes Mellitus -Continue glipizide and metformin -Accu-Cheks with insulin sliding scale coverage. -Blood sugars noted to be on the high side, increase sliding scale coverage to medium. Hypertension -Continue hydrochlorothiazide, hydralazine, and amlodipine -Monitor trends in blood pressure and adjust treatment accordingly Hypokalemia -Replace as indicated and monitor DVT prophylaxis -Lovenox 40 mg subq daily Discussed Condition With: Discussed with patient, significant other, nurse and case aide. Discharge Planning: Home. Will need home oxygen, case aide to assist with arrangement as she will need to pay for this out of pocket. Progress Note: Quality VTE Deep Vein Thrombosis/Pulmonary Embolism Present on Admission: No
[2018-02-27 06:11] LABS: Calcium 8.4 mg/dL (8.5-10.1); Carbon Dioxide 38.7 meq/L (21.0-32.0); Magnesium 2.3 mg/dL (1.5-2.5); Potassium 3.4 meq/L (3.5-5.1)
[2018-02-27] MEDS: Furosemide 40 MG Tablet PO SCH (10:08)
[2018-02-27] MEDS: hydrALAZINE 25 MG Tablet PO SCH ×3 (10:08→18:20)
[2018-02-27] MEDS: hydroCHLOROthiazide 25 MG Tablet PO SCH (10:09)
[2018-02-27] MEDS: Enoxaparin Inj 40 MG/0.4 ML Syringe SQ SCH (10:09)
[2018-02-27] MEDS: amLODIPine 10 MG Tablet PO SCH (10:13)
[2018-02-27] MEDS: glipiZIDE 5 MG Tablet PO SCH (10:13)
[2018-02-27] MEDS: Insulin NovoLOG Aspart Correctional Sugar Inj SQ SCH ×4 (10:14→20:50)
[2018-02-27] MEDS: Lidocaine 5% Patch T-DERMAL SCH (10:15)
[2018-02-27] MEDS: MethylPREDNISolone Sod Succinate Inj 40 MG/ML Vial IV.PUSH SCH (10:15)
[2018-02-27] MEDS: Budesonide-Formoterol 160/4.5 MCG 6 GM Inhaler INH SCH ×2 (10:16→20:53)
[2018-02-27] MEDS: Senna/Docusate Sodium 8.6/50 MG Tablet PO SCH ×2 (11:47→20:50)
--- NOTE | 2018-02-27 18:06 | P.PNIM ---
Subjective Interval history: Patient seen lying in bed knitting. She is very anxious to be released. Tells me that her is in [place] looking at a used oxygen concentrator. Patient denies any new shortness of breath; remains about the same. No chest pain. No fever or chills. No nausea vomiting or diarrhea Physical Exam Vital signs: Last Vital Signs Temp 97.6 F 02/27/18 16:00 Pulse 76 02/27/18 16:00 Resp 18 02/27/18 16:00 BP 154/83 H 02/27/18 16:00 Pulse Ox 93 L 02/27/18 16:26 Intake & Output 02/25/18 02/26/18 02/27/18 02/28/18 06:59 06:59 06:59 06:59 Intake Total 1780 / 1780 1060 / 1060 1032 / 1032 Balance 1780 / 1780 1060 / 1060 1032 / 1032 Weight 121.3 kg 121.3 kg 121.3 kg Narrative: GENERAL: Obese, well-developed adult female in no distress. SKIN: Warm and dry. HEAD: Atraumatic. Normocephalic. CARDIOVASCULAR: Regular rate and rhythm. RESPIRATORY: Breath sounds diminished at bases but equal bilaterally. No rales, rhonchi or wheezes. GASTROINTESTINAL: Abdomen soft, non-tender, nondistended. No guarding. MUSCULOSKELETAL: Extremities without clubbing, cyanosis, or edema. No calf tenderness. NEUROLOGICAL: Awake and alert. Motor and sensory grossly within normal limits. Normal speech. . Results Labs CBC & Chem 7: 02/26/18 10:38 02/27/18 05:25 Assessment and Plan Plan Mrs. Lynn is a pleasant 57-year-old female with a history of asthma, COPD, acute Crohn's disease in remission, arthritis, diabetes mellitus, and hypertension who presented to the emergency room on 02/20/2018 complaining of shortness of breath with chest pain. The patient was found to be in COPD exacerbation and was admitted to the hospitalist service for medical management. COPD exacerbation Hypoxic hypercapnic respiratory failure -At admit: Oxygen saturation 85% on room air, PCO2 elevated at 54, PO2 low at 54 on admission -Chest x-ray shows no acute cardiopulmonary disease -Duo nebulizers every 6 hours with albuterol nebulizers every 2 hours as needed for shortness of breath or wheezing -On IV ceftriaxone -Monitor pulse oximetry and provide supplemental oxygen titrated to maintain saturation greater than 90-92% -BiPAP as needed for respiratory distress or AMS from hypercarbia -Incentive spirometry -Continue home Symbicort -Solumedrol 40 mg IV, decrease to daily (02/24); taper -Influenza testing in the ED negative for flu types a and B -Increase in WBC likely reactive due to steroids, afebrile. -Failed walk test 02/27, will need home O2, telephonic case manager to assist with pricing as she will need to pay for this out of pocket due to lack of insurance. Atypical chest pain -appears musculoskeletal in etiology -Pain worse with coughing and reproducible with palpation of anterior chest wall midsternum -Cardiac enzymes negative and second EKG with low QRS voltage -No repeat chest pain; no dysrhythmias. DC telemetry 02/27. Type 2 Diabetes Mellitus -Continue glipizide and metformin -Accu-Cheks with insulin sliding scale coverage. -Blood sugars noted to be on the high side, increase sliding scale coverage to medium. Hypertension -Continue hydrochlorothiazide, hydralazine, and amlodipine -Monitor trends in blood pressure and adjust treatment accordingly Hypokalemia -Replace as indicated and monitor DVT prophylaxis -Lovenox 40 mg subq daily Discussed Condition With: Discussed with patient, significant other, nurse and telephonic case manager. Discharge Planning: Home. Will need home oxygen, telephonic case manager to assist with arrangement as she will need to pay for this out of pocket. Progress Note: Quality VTE Deep Vein Thrombosis/Pulmonary Embolism Present on Admission: No
[2018-02-28 04:08] VITALS: RESP 18
[2018-02-28] MEDS: Insulin NovoLOG Aspart Correctional Sugar Inj SQ SCH ×2 (07:44→12:09)
[2018-02-28] MEDS: Enoxaparin Inj 40 MG/0.4 ML Syringe SQ SCH (07:45)
[2018-02-28] MEDS: glipiZIDE 5 MG Tablet PO SCH (07:45)
[2018-02-28] MEDS: hydrALAZINE 25 MG Tablet PO SCH ×2 (07:45→12:09)
[2018-02-28] MEDS: Furosemide 40 MG Tablet PO SCH (07:45)
[2018-02-28] MEDS: amLODIPine 10 MG Tablet PO SCH (07:45)
[2018-02-28] MEDS: Senna/Docusate Sodium 8.6/50 MG Tablet PO SCH (07:45)
[2018-02-28] MEDS: hydroCHLOROthiazide 25 MG Tablet PO SCH (07:45)
[2018-02-28] MEDS: Lidocaine 5% Patch T-DERMAL SCH (10:04)
[2018-02-28] MEDS: MethylPREDNISolone Sod Succinate Inj 40 MG/ML Vial IV.PUSH SCH (10:06)
[2018-02-28] MEDS: Budesonide-Formoterol 160/4.5 MCG 6 GM Inhaler INH SCH (10:06)
[2018-02-28 11:33] VITALS: BP 134/72; PULSE 83; TEMP 97.9
[2018-02-28] MEDS ORDERED: predniSONE 5 MG Tablet PO SCH ×2 (11:45→12:00)
[2018-02-28 13:25] VITALS: O2SAT 95
--- NOTE | 2018-02-28 14:09 | P.PNIM ---
Subjective Interval history: Patient seen sitting on side of bed. She is requesting that her IV be removed as it is bothering her. Breathing is stable. Continues to require oxygen for pretty much all exertion. No chest pain. No fever or chills. No nausea vomiting or diarrhea. Physical Exam Vital signs: Last Vital Signs Temp 97.9 F 02/28/18 11:32 Pulse 83 02/28/18 11:32 Resp 18 02/28/18 11:32 BP 134/72 02/28/18 11:32 Pulse Ox 95 02/28/18 13:24 Intake & Output 02/26/18 02/27/18 02/28/18 03/01/18 06:59 06:59 06:59 06:59 Intake Total 1060 / 1060 1032 / 1032 1420 / 1420 Balance 1060 / 1060 1032 / 1032 1420 / 1420 Weight 121.3 kg 121.3 kg 121.3 kg Narrative: GENERAL: Obese, well-developed adult female in no distress. SKIN: Warm and dry. HEAD: Atraumatic. Normocephalic. CARDIOVASCULAR: Regular rate and rhythm. RESPIRATORY: Breath sounds diminished at bases but equal bilaterally. No rales, rhonchi or wheezes. GASTROINTESTINAL: Abdomen soft, non-tender, nondistended. No guarding. MUSCULOSKELETAL: Extremities without clubbing, cyanosis, or edema. No calf tenderness. NEUROLOGICAL: Awake and alert. Motor and sensory grossly within normal limits. Normal speech. . Results Labs CBC & Chem 7: 02/26/18 10:38 02/27/18 05:25 Assessment and Plan Plan Mrs. Lynn is a pleasant 57-year-old female with a history of asthma, COPD, acute Crohn's disease in remission, arthritis, diabetes mellitus, and hypertension who presented to the emergency room on 02/20/2018 complaining of shortness of breath with chest pain. The patient was found to be in COPD exacerbation and was admitted to the hospitalist service for medical management. COPD exacerbation Hypoxic hypercapnic respiratory failure -At admit: Oxygen saturation 85% on room air, PCO2 elevated at 54, PO2 low at 54 on admission -Chest x-ray shows no acute cardiopulmonary disease -Duo nebulizers every 6 hours with albuterol nebulizers every 2 hours as needed for shortness of breath or wheezing -On IV ceftriaxone -Monitor pulse oximetry and provide supplemental oxygen titrated to maintain saturation greater than 90-92% -BiPAP as needed for respiratory distress or AMS from hypercarbia -Incentive spirometry -Continue home Symbicort -Solumedrol 40 mg IV, decrease to daily (02/24); change to p.o. due to lack of IV. 10 mg daily for 5 days; then 5 mg daily. Patient to follow-up with pulmonology to see if steroids should be continued or stopped. -Influenza testing in the ED negative for flu types a and B -Increase in WBC likely reactive due to steroids, afebrile. -Failed walk test 02/27, will need home O2, block and case maker to assist with pricing as she will need to pay for this out of pocket due to lack of insurance. Atypical chest pain -appears musculoskeletal in etiology -Pain worse with coughing and reproducible with palpation of anterior chest wall midsternum -Cardiac enzymes negative and second EKG with low QRS voltage -No repeat chest pain; no dysrhythmias. DC telemetry 02/27. Type 2 Diabetes Mellitus -Continue glipizide and metformin -Accu-Cheks with insulin sliding scale coverage. -Blood sugars noted to be on the high side, increase sliding scale coverage to medium. Hypertension -Continue hydrochlorothiazide, hydralazine, and amlodipine -Monitor trends in blood pressure and adjust treatment accordingly Hypokalemia -Replace as indicated and monitor DVT prophylaxis -Lovenox 40 mg subq daily Discussed Condition With: Discussed with patient, significant other, nurse and block and case maker. Discharge Planning: Home. Will need home oxygen, block and case maker to assist with arrangement as she will need to pay for this out of pocket. Progress Note: Quality VTE Deep Vein Thrombosis/Pulmonary Embolism Present on Admission: No
--- NOTE | 2018-02-28 14:16 | P.DS ---
DS: Providers Date of admission: 02/20/18 19:50 Primary care physician: UNKNOWN Brief History from admission: Mrs. Lynn is a pleasant 57-year-old female with a history of asthma, COPD, acute Crohn's disease in remission, arthritis, diabetes mellitus, and hypertension who presented to the emergency room on 02/20/2018 complaining of shortness of breath with chest pain. The patient was found to be in COPD exacerbation and was admitted to the hospitalist service for medical management. The patient is seen in her hospital room. She reports having shortness of breath with minimal exertion including conversation accompanied by chest pain over the last week. She has been having shortness of breath over the past 3 months however. Currently, symptoms are rated as improved but were severe prior to emergency room visit. Her symptoms are accompanied by chills and cough with clear sputum. She denies any fever, nausea, vomiting, or diarrhea. Of note, her has pneumonia and the flu. DS: Summary Mrs. Lynn is a pleasant 57-year-old female with a history of asthma, COPD, acute Crohn's disease in remission, arthritis, diabetes mellitus, and hypertension who presented to the emergency room on 02/20/2018 complaining of shortness of breath with chest pain. The patient was found to be in COPD exacerbation and was admitted to the hospitalist service for medical management. COPD exacerbation; exacerbation resolving however remains O2 dependent. Hypoxic hypercapnic respiratory failure -resolved -At admit: Oxygen saturation 85% on room air, PCO2 elevated at 54, PO2 low at 54 on admission -Chest x-ray shows no acute cardiopulmonary disease; Influenza testing in the ED negative for flu types a and B -Treated with duo nebs and IV ceftriaxone -Continued home Symbicort -Added Solumedrol 40 mg IV, decrease to daily (02/24); change to p.o. 02/28 due to lack of IV. 10 mg daily for 5 days; then 5 mg daily. Patient to follow-up with pulmonology to see if steroids should be continued or stopped. -Increase in WBC likely reactive due to steroids, afebrile. -Failed walk test 02/27, will need home O2. Atypical chest pain -appears musculoskeletal in etiology; resolved -Pain worse with coughing and reproducible with palpation of anterior chest wall midsternum -Cardiac enzymes negative and second EKG with low QRS voltage -No repeat chest pain; no dysrhythmias. DC telemetry 02/27. Type 2 Diabetes Mellitus -chronic; stable -Continue glipizide and metformin -Accu-Cheks with insulin sliding scale coverage. -Blood sugars noted to be on the high side, increase sliding scale coverage to medium. Hypertension -chronic; stable -Continue hydrochlorothiazide, hydralazine, and amlodipine -Monitor trends in blood pressure and adjust treatment accordingly Hypokalemia -acute; resolved -Replace as indicated and monitor at 2l Time Spent with Patient Total time spent providing and/or coordinating discharge services: <30 min Quality: VTE Deep Vein Thrombosis/Pulmonary Embolism Present on Admission: No Exam Narrative Exam Narrative: Narrative: GENERAL: Obese, well-developed adult female in no distress. SKIN: Warm and dry. HEAD: Atraumatic. Normocephalic. CARDIOVASCULAR: Regular rate and rhythm. RESPIRATORY: Breath sounds diminished at bases but equal bilaterally. No rales, rhonchi or wheezes. GASTROINTESTINAL: Abdomen soft, non-tender, nondistended. No guarding. MUSCULOSKELETAL: Extremities without clubbing, cyanosis, or edema. No calf tenderness. NEUROLOGICAL: Awake and alert. Motor and sensory grossly within normal limits. Normal speech. Results Labs on day of discharge: Labs from last 24 hours 02/28/18 02/28/18 02/27/18 12:08 07:38 20:41 POC Glucose 78 130 H 381 H 02/27/18 17:54 POC Glucose 229 H Impressions ITS Impressions Chest X-Ray 02/22/18 00:00 CONCLUSION: 1. No acute cardiopulmonary disease. Discharge Plan Discharge Disposition Patient Disposition: Discharge Home Discharge Condition Condition: Stable Discharge Order Discharge Orders: Discharge Order (Routine); Ordered 02/28/18 Ordered By: Yana Durant Discharge Details Anticipated Discharge Date: 02/28/18 Discharge Comment: Patient must have home O2 prior to discharge Diagnosis: Asthma exacerbation in COPD, Hypoxemia, Diabetes mellitus, Hypertension Physicians Team ED Provider: John Car Primary Care Provider: UNKNOWN, Attending Provider: Kriss Bright Rxs /Orders / Referrals /Forms Prescriptions: New prednisone 5 mg Tablet 10 mg PO DAILY Qty: 30 RF: 0 Continue metformin 500 mg Tablet 500 mg PO BID RF: 0 diclofenac sodium 75 mg Tablet,Delayed Release (Dr/Ec) 75 mg PO BID RF: 0 hydrochlorothiazide 25 mg Tablet 25 mg PO DAILY RF: 0 furosemide 40 mg Tablet 40 mg PO DAILY RF: 0 hydralazine 25 mg Tablet 25 mg PO TID RF: 0 amlodipine 10 mg Tablet 10 mg PO DAILY RF: 0 ergocalciferol (vitamin D2) [Vitamin D2] 50,000 unit Capsule 50,000 unit PO QWEEK RF: 0 albuterol sulfate [Ventolin HFA] 90 mcg/actuation Hfa Aerosol Inhaler 2 puff INHALATION QID RF: 0 glipizide 5 mg Tablet 5 mg PO DAILY RF: 0 budesonide-formoterol [Symbicort] 160-4.5 mcg/actuation Hfa Aerosol Inhaler 2 puff INHALATION BID RF: 0 Ambulatory Orders / Order Sets / DME: Oxygen Tank (2-5 liter) (Routine) Timeframe: 99 Years Location: Determined by Patient Ordered By: Chiki Nair Referrals: UNKNOWN, [Primary Care Provider] - See Instructions Discharge Instructions Patient Printed Instructions: COPD (Chronic Obstructive Pulmonary Disease) (GEN ), Using Oxygen at Home (GEN) Discharge Interventions Interventions: Discharge Planning - Case Management Last Done: 02/28/18 07:16 Status ED Status: Left Department
== END 2018-02-28 15:54 | disposition home or self-care (01) ==
LOC: NEDA 16:39 → NEPC 16:39 → N06 20:56
PROVIDERS: ADMIT Hospitalist; ATTEND Hospitalist